=== PATIENT | female | born 1945 | race Caucasian/White ===

== ENCOUNTER 2017-06-08 08:29 | Outpatient (CLI) | payer MEDICARE, OTHER ==
[2017-06-08 08:56] LABS: BASOPHILS # (AUTO) 0.1 10^3/uL (0.0-0.1); BASOPHILS % (AUTO) 1.4 %; EOSINOPHILS # (AUTO) 0.4 10^3/uL (0.0-0.7); EOSINOPHILS % (AUTO) 6.4 %; HCT - HEMATOCRIT 37.1 % (37.0-47.0); HGB - HEMOGLOBIN 12.9 g/dL (12.0-16.0); LYMPHOCYTES # (AUTO) 1.2 10^3/uL (1.5-3.5); LYMPHOCYTES % (AUTO) 20.1 %; MEAN CORPUSCULAR HEMOGLOBIN 32.7 pg (27.0-31.0); MEAN CORPUSCULAR HGB CONC 34.7 g/dL (32.0-36.0); MEAN CORPUSCULAR VOLUME 94.4 fL (81.0-99.0); MEAN PLATELET VOLUME 7.1 fL (7.9-10.8); MONOCYTES # (AUTO) 0.5 10^3/uL (0.0-1.0); MONOCYTES % (AUTO) 8.6 %; NEUTROPHILS # (AUTO) 3.7 10^3/uL (1.5-6.6); NEUTROPHILS % (AUTO) 63.5 %; RED BLOOD COUNT 3.93 10^6/uL (4.20-5.40); RED CELL DISTRIBUTION WIDTH 12.6 % (12.0-15.0); UNCORRECTED WHITE BLOOD COUNT 5.8 x10^3/uL; WHITE BLOOD COUNT 5.8 x10^3/uL (4.8-10.8)
[2017-06-08 09:24] LABS: ALBUMIN/GLOBULIN RATIO 1.8 (1.0-2.2); BILIRUBIN,TOTAL 0.6 mg/dL (0.2-1.0); BUN - BLOOD UREA NITROGEN 16 mg/dL (6-20); CARBON DIOXIDE - CO2 25 mmol/L (21-32); CHLORIDE 103 mmol/L (101-111); CHOL/HDL RATIO 2.2 (<4.4); CHOLESTEROL 207 mg/dL; CREATININE 0.8 mg/dL (0.4-1.0); GFR - MDRD 70 (>89); GLUCOSE 92 mg/dL (70-100); HDL CHOLESTEROL 96 mg/dL; POTASSIUM 3.9 mmol/L (3.5-5.0); SODIUM 139 mmol/L (135-145); TOTAL PROTEIN 6.7 g/dL (6.7-8.2); TRIGLYCERIDES 55 mg/dL; VLDL CHOLESTEROL 11 mg/dL
[2017-06-08 09:29] LABS: BILIRUBIN,URINE NEGATIVE (NEGATIVE); PH,URINE 6.5 PH (5.0-7.5)
[2017-06-08 09:38] LABS: UA w/ MICROSCOPIC CHARGE YES
[2017-06-08 09:49] LABS: UR CULTURE IF IND NOT INDICATED
== END 2017-06-08 08:30 | disposition home or self-care (01) ==
LOC: LAB 08:29
PROVIDERS: ATTEND Internal Medicine
DX: Z79.899 Other long term (current) drug therapy (principal); I10 Essential (primary) hypertension; J45.909 Unspecified asthma, uncomplicated; Z87.19 Personal history of other diseases of the digestive system; K58.9 Irritable bowel syndrome, unspecified; Z86.010 Personal history of colon polyps; R31.29 Other microscopic hematuria; M19.90 Unspecified osteoarthritis, unspecified site; M45.5 Ankylosing spondylitis of thoracolumbar region; M81.0 Age-related osteoporosis without current pathological fracture; E03.9 Hypothyroidism, unspecified; R58 Hemorrhage, not elsewhere classified
CPT/HCPCS: 36415; 80053; 80061; 81001; 81003; 82306; 84443; 85025; 87086

== ENCOUNTER 2018-02-02 10:08 | Outpatient (CLI) | payer MEDICARE, OTHER ==
[2018-02-02 17:28] LABS: BILIRUBIN,URINE NEGATIVE (NEGATIVE); GLUCOSE, URINE (UA) NEGATIVE (NEGATIVE); KETONES,URINE (UA) NEGATIVE (NEGATIVE); LEUKOCYTE ESTERASE, URINE MODERATE (NEGATIVE); NITRITE,URINE NEGATIVE (NEGATIVE); OCCULT BLOOD,URINE SMALL (NEGATIVE); PH,URINE 6.5 PH (5.0-7.5); PROTEIN,URINE NEGATIVE (NEGATIVE); UROBILINOGEN,URINE 0.2 (NORMAL) E.U./dL (NORMAL)
[2018-02-02 17:39] LABS: CLARITY,URINE HAZY (CLEAR)
[2018-02-02 17:50] LABS: ALBUMIN 4.6 g/dL (3.2-5.5); BILIRUBIN,DIRECT 0.1 mg/dL (0.1-0.5); BILIRUBIN,TOTAL 0.8 mg/dL (0.2-1.0); TOTAL PROTEIN 7.2 g/dL (6.7-8.2)
[2018-02-02 18:02] LABS: WBC CLUMPS,URINE PRESENT
[2018-02-02 18:03] LABS: BACTERIA,URINE Many /HPF (None Seen); SQUAMOUS EPITHELIAL CELL,UR RARE Squamous (<= Few)
== END 2018-02-02 10:09 | disposition home or self-care (01) ==
LOC: LAB.F 10:08
PROVIDERS: ATTEND Dermatology
DX: N30.00 Acute cystitis without hematuria (principal); D48.5 Neoplasm of uncertain behavior of skin; B35.1 Tinea unguium
CPT/HCPCS: 36415; 80076; 81001; 81003; 87077; 87086; 87181

== ENCOUNTER 2018-04-30 15:28 | Outpatient (CLI) | payer MEDICARE, OTHER ==
--- NOTE | 2018-05-01 11:25 | Ultrasound Report ---
Reason: MULTIPLE UTIS Procedure Date: 04/30/2018 Accession Number: [id number] / [id number] Procedure: US - Retroperitoneal CPT Code: FULL RESULT: EXAM: RENAL ULTRASOUND EXAM DATE: 04/30/2018 04:32 PM. CLINICAL HISTORY: Multiple UTIs. COMPARISON: None. TECHNIQUE: Real-time scanning was performed with static images obtained. FINDINGS: Right Kidney: 9.5 cm. Normal echotexture with no stones, contour-deforming masses, or hydronephrosis. Left Kidney: 10.1 cm. Normal echotexture with no stones, contour-deforming masses, or hydronephrosis. Bladder: Bilateral jets seen. The prevoid bladder volume was 553 cc. The postvoid bladder volume was 39 cc. Other: None. IMPRESSION: Normal renal ultrasound. RADIA
== END 2018-04-30 15:29 | disposition home or self-care (01) ==
LOC: DI 15:28
PROVIDERS: ATTEND Internal Medicine
DX: N39.0 Urinary tract infection, site not specified (principal)
CPT/HCPCS: 76770

== ENCOUNTER 2018-05-09 13:52 | Outpatient (CLI) | payer MEDICARE, OTHER | END 2018-05-09 13:53 | disposition home or self-care (01) | LOC: LAB.F 13:52 | DX: B35.1 Tinea unguium (principal); Z79.899 Other long term (current) drug therapy ==

== ENCOUNTER 2018-05-14 11:04 | Outpatient (CLI) | payer MEDICARE, OTHER ==
[2018-05-14 17:26] LABS: BILIRUBIN,URINE NEGATIVE (NEGATIVE); GLUCOSE, URINE (UA) NEGATIVE (NEGATIVE); KETONES,URINE (UA) NEGATIVE (NEGATIVE); LEUKOCYTE ESTERASE, URINE SMALL (NEGATIVE); NITRITE,URINE NEGATIVE (NEGATIVE); OCCULT BLOOD,URINE MODERATE (NEGATIVE); PH,URINE 6.5 PH (5.0-7.5); PROTEIN,URINE NEGATIVE (NEGATIVE); UROBILINOGEN,URINE 0.2 (NORMAL) E.U./dL (NORMAL)
[2018-05-14 17:42] LABS: CLARITY,URINE CLOUDY (CLEAR)
[2018-05-14 17:43] LABS: BACTERIA,URINE Moderate /HPF (None Seen); RBC,URINE 0-5 /HPF (0-5); SQUAMOUS EPITHELIAL CELL,UR NONE SEEN (<= Few); WBC CLUMPS,URINE PRESENT
[2018-05-14 17:52] LABS: ALBUMIN 4.3 g/dL (3.2-5.5); BILIRUBIN,DIRECT 0.1 mg/dL (0.1-0.5); BILIRUBIN,TOTAL 0.7 mg/dL (0.2-1.0); TOTAL PROTEIN 7.2 g/dL (6.7-8.2)
== END 2018-05-14 11:05 | disposition home or self-care (01) ==
LOC: LAB.F 11:04
PROVIDERS: ATTEND Dermatology
DX: Z79.899 Other long term (current) drug therapy (principal); R35.0 Frequency of micturition
CPT/HCPCS: 36415; 80076; 81001; 81003; 87086

== ENCOUNTER 2018-05-16 09:59 | Outpatient (CLI) | payer MEDICARE, OTHER ==
[2018-05-16 18:12] LABS: CREATININE 0.9 mg/dL (0.4-1.0)
== END 2018-05-16 10:00 | disposition home or self-care (01) ==
LOC: LAB.F 09:59
PROVIDERS: ATTEND Student in an Organized Health Care Education/Training Program
DX: N39.0 Urinary tract infection, site not specified (principal); R31.0 Gross hematuria
CPT/HCPCS: 36415; 82565

== ENCOUNTER 2018-07-12 15:04 | Outpatient (CLI) | payer MEDICARE, OTHER ==
--- NOTE | 2018-07-13 09:32 | Mammography Report ---
Reason: SCREENING MAMMO Procedure Date: 07/12/2018 Accession Number: [id number] / [id number] Procedure: OPAL - Screening Mammo Impl w/Sergio CPT Code: FULL RESULT: EXAM: Screening Mammo Impl w/Sergio DATE: 07/12/2018 4:40 PM CLINICAL HISTORY: Screening examination. No reported risk factors. TECHNIQUE: Bilateral CC and MLO views were obtained. All views were performed in implant displaced and standard fashion. COMPARISON: 02/14/2012 through 11/27/2008. FINDINGS: The breasts demonstrate extremely dense parenchyma bilaterally, limiting the sensitivity of mammography. Bilateral subglandular implants are redemonstrated. There are bilateral typically benign vascular calcifications. No suspicious masses, clustered microcalcifications, or regions of architectural distortion are identified. IMPRESSION: Benign findings RECOMMENDATION: Routine annual screening unless otherwise clinically indicated. BIRADS CATEGORY 2: Benign findings STANDARD QUALIFYING STATEMENTS: 1. This examination was not reviewed with the aid of Computer-Aided Detection (CAD). 2. A negative or benign imaging report should not preclude biopsy if clinically suspicious findings are present. 3. Dense breasts may obscure an underlying neoplasm. 4. This examination was reviewed with the aid of 3D breast imaging (tomosynthesis).
== END 2018-07-12 15:05 | disposition home or self-care (01) ==
LOC: DI 15:04
PROVIDERS: ATTEND Internal Medicine
DX: Z12.31 Encounter for screening mammogram for malignant neoplasm of breast (principal); Z98.82 Breast implant status
CPT/HCPCS: 77063; 77067

== ENCOUNTER 2019-03-29 12:20 | Outpatient (CLI) | payer MEDICARE, OTHER ==
--- NOTE | 2019-03-29 13:59 | XRAY Report ---
Reason: COUGH Procedure Date: 03/29/2019 Accession Number: [id number] / [id number] Procedure: XR - Chest 2 View X-Ray CPT Code: 13082 FULL RESULT: EXAM: CHEST RADIOGRAPHY EXAM DATE: 03/29/2019 12:48 PM. CLINICAL HISTORY: COUGH. COMPARISON: XR CHEST PA AND LAT 04/05/2007 12:45 PM. TECHNIQUE: 2 views. FINDINGS: Lungs/Pleura: No focal opacities evident. No pleural effusion. No pneumothorax. Normal volumes. Mediastinum: Stable nonenlarged cardiomediastinal silhouette for size with subtle calcifications of the aortic arch. Other: None. IMPRESSION: No acute cardiopulmonary abnormality. RADIA
== END 2019-03-29 12:21 | disposition home or self-care (01) ==
LOC: DI 12:20
PROVIDERS: ATTEND Internal Medicine
DX: R05 Cough (principal)
CPT/HCPCS: 71046

== ENCOUNTER 2019-04-22 16:57 | Outpatient (CLI) | payer MEDICARE, OTHER ==
--- NOTE | 2019-04-23 17:27 | XRAY Report ---
Reason: THORACIC BACK PAIN Procedure Date: 04/22/2019 Accession Number: [id number] / [id number] Procedure: XR - Thoracic Spine 2 View CPT Code: FULL RESULT: EXAM: THORACIC SPINE RADIOGRAPHY EXAM DATE: 04/22/2019 05:15 PM. CLINICAL HISTORY: THORACIC BACK PAIN. COMPARISON: CHEST 2 VIEW 03/29/2019 12:40 PM THORACIC SPINE 2 VIEW 11/18/2014 2:12 PM. TECHNIQUE: 2 views. FINDINGS: Alignment: Unchanged. Slight upper thoracic dextroscoliosis and mid thoracic levoscoliosis. Anterior listhesis C4 with respect to C3 and C5. Bones: No acute fractures or bone lesions. Slight multilevel vertebral body height loss unchanged since prior. Multilevel anterior lower thoracic spur formation also stable Disks: Scattered degenerative disk space narrowing cervical and thoracic spine. Soft Tissues: Unremarkable. IMPRESSION: Multilevel degenerative change thoracic spine similar to 2015. No significant new findings. RADIA
== END 2019-04-22 16:58 | disposition home or self-care (01) ==
LOC: DI 16:57
PROVIDERS: ATTEND Internal Medicine
DX: M47.814 Spondylosis without myelopathy or radiculopathy, thoracic region (principal)
CPT/HCPCS: 72070

== ENCOUNTER 2019-05-27 15:19 | Outpatient (CLI) | payer MEDICARE, OTHER ==
[2019-05-27 17:42] LABS: BILIRUBIN,URINE NEGATIVE (NEGATIVE); GLUCOSE, URINE (UA) NEGATIVE (NEGATIVE); KETONES,URINE (UA) NEGATIVE (NEGATIVE); LEUKOCYTE ESTERASE, URINE TRACE (NEGATIVE); NITRITE,URINE NEGATIVE (NEGATIVE); OCCULT BLOOD,URINE NEGATIVE (NEGATIVE); PROTEIN,URINE NEGATIVE (NEGATIVE); UROBILINOGEN,URINE 0.2 (NORMAL) E.U./dL (NORMAL)
[2019-05-27 17:45] LABS: CLARITY,URINE CLEAR (CLEAR)
[2019-05-27 17:53] LABS: BACTERIA,URINE None Seen /HPF (None Seen); RBC,URINE None Seen /HPF (0-5); SQUAMOUS EPITHELIAL CELL,UR RARE Squamous (<= Few)
== END 2019-05-27 15:20 | disposition home or self-care (01) ==
LOC: LAB.S 15:19
PROVIDERS: ATTEND Internal Medicine
DX: R39.9 Unspecified symptoms and signs involving the genitourinary system (principal)
CPT/HCPCS: 81001; 81003; 87086

== ENCOUNTER 2020-03-18 12:12 | Outpatient (CLI) | payer MEDICARE, OTHER ==
[2020-03-18 15:22] LABS: ALBUMIN 4.5 g/dL (3.2-5.5); BILIRUBIN,DIRECT 0.1 mg/dL (0.1-0.5); TOTAL PROTEIN 7.1 g/dL (6.7-8.2)
== END 2020-03-18 12:13 | disposition home or self-care (01) ==
LOC: LAB.S 12:12
PROVIDERS: ATTEND Physician Assistant
DX: L60.1 Onycholysis (principal)
CPT/HCPCS: 36415; 80076

== ENCOUNTER 2020-11-03 10:50 | Outpatient (CLI) | payer MEDICARE ==
--- NOTE | 2020-11-04 12:16 | Mammography Report ---
BILATERAL DIGITAL SCREENING MAMMOGRAM 3D/2D WITH AUGMENTATION: 11/03/2020 CLINICAL: Routine screening. Comparison is made to exam dated: 07/12/2018 mammogram - [facility]. The tissue of both breasts is extremely dense, which lowers the sensitivity of mammography. Bilateral breast implants are intact. There are benign calcifications in both breasts. There also a re benign vascular calcifications in both breasts. No significant masses, calcifications, or other findings are seen in either breast. There has been no significant interval change. IMPRESSION: BENIGN There is no mammographic evidence of malignancy. A 1 year screening mammogram is recommended. This exam was interpreted at Station ID: [id number]. NOTE: For mammograms, a report in lay terms will be sent to the patient. Approximately 15% of breast malignancies will not be visualized mammographically. In the management of a palpable breast mass, a negative mammogram must not discourage biopsy of a clinically suspicious lesion. Electronically Signed By: Aj Chauhan M.D. ddp/penrad:11/03/2020 11:32:33 ACR BI-RADS Category 2: Benign Finding(s) 3342F PARENCHYMAL PATTERN: (VD) - The breast(s) demonstrate(s) extremely dense parenchyma, limiting the sen sitivity of mammography. BI-RADS CATEGORY: (2) - 2 RECOMMENDATION: (ANNUAL) - Recommend routine annual screening mammography. [id number] 1 year screening LATERALITY: (B)
== END 2020-11-03 10:51 | disposition home or self-care (01) ==
LOC: DI.S 10:50
PROVIDERS: ATTEND Internal Medicine
DX: Z12.31 Encounter for screening mammogram for malignant neoplasm of breast (principal); Z98.82 Breast implant status

== ENCOUNTER 2020-11-03 11:06 | Outpatient (CLI) | payer MEDICARE ==
--- NOTE | 2020-11-03 14:53 | XRAY Report ---
PROCEDURE: Foot 3 View RT INDICATIONS: BRUISED RIGHT 4TH 5TH DIGITS TECHNIQUE: views of the foot were acquired. COMPARISON: None FINDINGS: Bones: There is a mildly displaced mid fifth proximal phalanx fracture. No suspicious bony lesions. Soft tissues: No tibiotalar joint effusion. Achilles tendon appears normal. IMPRESSION: Mildly displaced mid fifth phalanx fracture. Reviewed by: Sofia Vela MD on 11/03/2020 2:52 PM PDT Approved by: Sofia Vela MD on 11/03/2020 2:52 PM PDT Station ID: [id number]
== END 2020-11-03 11:07 | disposition home or self-care (01) ==
LOC: DI.S 11:06
PROVIDERS: ATTEND Internal Medicine
DX: S90.121A Contusion of right lesser toe(s) without damage to nail, initial encounter (principal); S92.511A Displaced fracture of proximal phalanx of right lesser toe(s), initial encounter for closed fracture

== ENCOUNTER 2020-11-12 10:14 | Outpatient (CLI) | payer MEDICARE | END 2020-11-12 10:15 | disposition home or self-care (01) | LOC: DI 10:14 | PROVIDERS: ATTEND Internal Medicine | DX: R00.1 Bradycardia, unspecified (principal); I87.8 Other specified disorders of veins; I51.7 Cardiomegaly | CPT/HCPCS: 93306 ==

== ENCOUNTER 2021-02-01 13:19 | Outpatient (CLI) | payer MEDICARE ==
[2021-02-01 20:27] LABS: ALBUMIN 4.4 g/dL (3.2-5.5); BILIRUBIN,DIRECT 0.1 mg/dL (0.1-0.5); TOTAL PROTEIN 6.7 g/dL (6.7-8.2)
== END 2021-02-01 13:20 | disposition home or self-care (01) ==
LOC: LAB.S 13:19
PROVIDERS: ATTEND Physician Assistant
DX: Z79.899 Other long term (current) drug therapy (principal)
CPT/HCPCS: 36415; 80076

== ENCOUNTER 2021-02-12 08:00 | Outpatient (CLI) | payer MEDICARE | END 2021-02-12 23:59 | disposition home or self-care (01) | LOC: LAB.S 08:00 | PROVIDERS: ATTEND Physician Assistant Medical | DX: R07.0 Pain in throat (principal); Z20.822 Contact with and (suspected) exposure to COVID-19 ==

== ENCOUNTER 2021-03-26 14:05 | Outpatient (CLI) | payer MEDICARE ==
[2021-03-26 20:21] LABS: ALBUMIN 4.2 g/dL (3.2-5.5); BILIRUBIN,DIRECT 0.1 mg/dL (0.1-0.5); TOTAL PROTEIN 6.9 g/dL (6.7-8.2)
== END 2021-03-26 14:06 | disposition home or self-care (01) ==
LOC: LAB.S 14:05
PROVIDERS: ATTEND Physician Assistant
DX: B35.1 Tinea unguium (principal); L71.8 Other rosacea
CPT/HCPCS: 36415; 80076

== ENCOUNTER 2021-06-03 08:00 | Outpatient (CLI) | payer MEDICARE | END 2021-06-03 23:59 | disposition home or self-care (01) | LOC: LAB 08:00 | PROVIDERS: ATTEND Physician Assistant | DX: N39.0 Urinary tract infection, site not specified (principal) | CPT/HCPCS: 87086 ==

== ENCOUNTER 2021-06-10 09:37 | Outpatient (CLI) | payer MEDICARE ==
[2021-06-10 15:37] LABS: ALBUMIN 4.4 g/dL (3.2-5.5); BILIRUBIN,DIRECT 0.1 mg/dL (0.1-0.5); BILIRUBIN,TOTAL 0.6 mg/dL (0.2-1.0)
== END 2021-06-10 09:38 | disposition home or self-care (01) ==
LOC: LAB.S 09:37
PROVIDERS: ATTEND Physician Assistant
DX: B35.1 Tinea unguium (principal)
CPT/HCPCS: 36415; 80076

== ENCOUNTER 2021-06-24 16:14 | Outpatient (CLI) | payer MEDICARE ==
[2021-06-24 20:32] LABS: BILIRUBIN,URINE NEGATIVE (NEGATIVE); GLUCOSE, URINE (UA) NEGATIVE (NEGATIVE); KETONES,URINE (UA) NEGATIVE (NEGATIVE); LEUKOCYTE ESTERASE, URINE NEGATIVE (NEGATIVE); NITRITE,URINE NEGATIVE (NEGATIVE); OCCULT BLOOD,URINE TRACE-INTA (NEGATIVE); PH,URINE 6.5 PH (5.0-7.5); PROTEIN,URINE NEGATIVE (NEGATIVE); UROBILINOGEN,URINE 0.2 (NORMAL) E.U./dL (NORMAL)
[2021-06-24 20:33] LABS: CLARITY,URINE CLEAR (CLEAR)
== END 2021-06-24 16:15 | disposition home or self-care (01) ==
LOC: LAB.S 16:14
PROVIDERS: ATTEND Internal Medicine
DX: N39.0 Urinary tract infection, site not specified (principal)
CPT/HCPCS: 81001; 81003; 87086

== ENCOUNTER 2021-06-29 10:28 | Outpatient (CLI) | payer MEDICARE ==
--- NOTE | 2021-06-29 12:23 | XRAY Report ---
PROCEDURE: Thoracic Spine 2 View INDICATIONS: BACK PAIN TECHNIQUE: 3 views of the thoracic spine were acquired. COMPARISON: None. FINDINGS: Bones: No fractures or dislocations. No suspicious bony lesions. 12 pairs of ribs are noted, and a ppear intact where visualized. Severe degenerative disc changes noted throughout the mid and lower th oracic spine. Moderate degenerative changes noted throughout the upper thoracic spine. Soft tissues: No paravertebral stripe thickening. IMPRESSION: 1. Multilevel degenerative disc disease. 2. No fracture. No acute osseous lesion. If there is continued clinical concern for pathology, then M RI should be considered for further evaluation. Reviewed by: Candelaria Villafuerte MD, PhD on 06/29/2021 12:22 PM PST Approved by: Candelaria Villafuerte MD, PhD on 06/29/2021 12:22 PM PST Station ID: [id number]
== END 2021-06-29 10:29 | disposition home or self-care (01) ==
LOC: DI.S 10:28
PROVIDERS: ATTEND Internal Medicine
DX: M51.34 Other intervertebral disc degeneration, thoracic region (principal)

== ENCOUNTER 2021-07-13 14:00 | Outpatient (CLI) | payer MEDICARE ==
[2021-07-13 19:59] LABS: BILIRUBIN,URINE NEGATIVE (NEGATIVE); GLUCOSE, URINE (UA) NEGATIVE (NEGATIVE); KETONES,URINE (UA) NEGATIVE (NEGATIVE); LEUKOCYTE ESTERASE, URINE MODERATE (NEGATIVE); NITRITE,URINE NEGATIVE (NEGATIVE); OCCULT BLOOD,URINE MODERATE (NEGATIVE); PROTEIN,URINE TRACE mg/dL (NEGATIVE); UROBILINOGEN,URINE 0.2 (NORMAL) E.U./dL (NORMAL)
[2021-07-13 20:14] LABS: BACTERIA,URINE Moderate /HPF (None Seen); CLARITY,URINE CLOUDY (CLEAR); SQUAMOUS EPITHELIAL CELL,UR MOD Squamous (<= Few)
== END 2021-07-13 14:01 | disposition home or self-care (01) ==
LOC: LAB.S 14:00
PROVIDERS: ATTEND Internal Medicine
DX: R39.0 Extravasation of urine (principal)
CPT/HCPCS: 81001; 87077; 87086

== ENCOUNTER 2021-08-02 11:21 | Outpatient (CLI) | payer MEDICARE ==
--- NOTE | 2021-08-04 18:32 | CARDIAC PROCEDURE NOTE ---
Stress Test Report Service Date: 08/02/21 Indication for Test: Exercise ECHO Morgan protocol. 5 minutes. mets=7.05 Reason for stopping: exceeded target heart rate HR response: 63 to 138 BP resonse: 150/79 to 182/84 symptoms. No CP some dyspnea. ST segment response: no signifcant ST elevation or depression Arrhythmias: occasional PVC's and PAC's Impression: no symptoms or significant EKG changes Conclusion: likely low-risk stress eCHO, but await ECHO results
== END 2021-08-02 11:22 | disposition home or self-care (01) ==
LOC: DI 11:21
PROVIDERS: ATTEND Internal Medicine
DX: R07.9 Chest pain, unspecified (principal)
CPT/HCPCS: 93350

== ENCOUNTER 2021-08-31 09:48 | Outpatient (CLI) | payer MEDICARE ==
[2021-08-31] MEDS ORDERED: IOVERSOL 320 100 ML VIAL IVP ONE ×2 (10:10→10:51)
[2021-08-31 10:24] LABS: CREATININE 0.7 mg/dL (0.4-1.0)
--- NOTE | 2021-08-31 14:22 | CT Report ---
PROCEDURE: ANGIO CHEST W/WO INDICATIONS: INTERMITTENT SEVER CP CONTRAST: IV CONTRAST: Optiray 320 ml: 80 PO CONTRAST: *NO PO CONTRAST TECHNIQUE: After the administration of intravenous contrast, 2 mm axial images were acquired from the pulmonary apices to the posterior costophrenic angles during the arterial phase. In addition, 1 mm lung kernel and 5 mm soft tissue kernel reconstructions were performed. 3-dimensional coronal oblique maximum int ensity projection (MIP) reformats, 8 mm axial MIP, and 5 mm coronal and sagittal MPR reformats were t hen performed through the thorax. For radiation dose reduction, the following was used: automated exp osure control, adjustment of mA and/or kV according to patient size. COMPARISON: None FINDINGS: Image quality: Excellent. Pulmonary arteries: Pulmonary arteries are normal in size, and demonstrate no intraluminal filling d efects to suggest central pulmonary embolism. Lungs and pleura: Lungs are clear. No pleural effusions or pneumothorax. Central and peripheral ai rways are patent. Mediastinum: Heart size is normal, without pericardial effusion. No mediastinal or hilar adenopathy . Thoracic aorta is normal in caliber and enhancement. Esophagus is normal in caliber, without hiat al hernia. Bones and chest wall: No suspicious bony lesions. Ribs and thoracic spine appear intact throughout. No axillary or supraclavicular adenopathy. The thyroid is normal in size and there are no incident al findings. Bilateral mammoplasties. Abdomen: Visualized upper abdominal solid organs appear normal in the early arterial phase of enhanc ement. IMPRESSION: 1. No evidence acute pulmonary emboli. 2. No evidence of acute pulmonary process. 3. Mild coronary artery calcifications. CLINICAL RECOMMENDATION STATEMENTS: In patients <35 years with an ITN detected on CT, MRI, or extrathyroidal ultrasound, the Committee re commends further evaluation with dedicated thyroid ultrasound if the nodule is "e1 cm and has no susp icious imaging features, and if the patient has normal life expectancy. In patients "e35 years with an ITN detected on CT, MRI, or extrathyroidal ultrasound, the Committee r ecommends further evaluation with dedicated thyroid ultrasound if the nodule is "e1.5 cm and has no s uspicious imaging features, and if the patient has normal life expectancy. (ACR, 2014) Reviewed by: Mumtaz Sosa MD on 08/31/2021 2:20 PM PST Approved by: Mumtaz Sosa MD on 08/31/2021 2:20 PM [facility] [place] Station ID: [id number]
== END 2021-08-31 09:49 | disposition home or self-care (01) ==
LOC: LAB 09:48
PROVIDERS: ATTEND Internal Medicine
DX: Z79.899 Other long term (current) drug therapy (principal); R07.9 Chest pain, unspecified; I25.10 Atherosclerotic heart disease of native coronary artery without angina pectoris
CPT/HCPCS: 36415; 71275; 82565; Q9967

== ENCOUNTER 2021-09-01 08:00 | Outpatient (CLI) | payer MEDICARE ==
[2021-09-01 16:14] LABS: BILIRUBIN,URINE NEGATIVE (NEGATIVE); GLUCOSE, URINE (UA) NEGATIVE (NEGATIVE); KETONES,URINE (UA) NEGATIVE (NEGATIVE); LEUKOCYTE ESTERASE, URINE SMALL (NEGATIVE); NITRITE,URINE NEGATIVE (NEGATIVE); OCCULT BLOOD,URINE LARGE (NEGATIVE); PROTEIN,URINE 100 mg/dL (NEGATIVE); UROBILINOGEN,URINE 0.2 (NORMAL) E.U./dL (NORMAL)
[2021-09-01 16:17] LABS: CLARITY,URINE HAZY (CLEAR)
[2021-09-01 16:27] LABS: BACTERIA,URINE Few /HPF (None Seen); RBC,URINE TNTC /HPF (0-5); SQUAMOUS EPITHELIAL CELL,UR RARE Squamous (<= Few); WBC,URINE >25 /HPF (0-5)
== END 2021-09-01 23:59 | disposition home or self-care (01) ==
LOC: LAB.R 08:00
PROVIDERS: ATTEND Emergency Medicine
DX: N30.01 Acute cystitis with hematuria (principal)
CPT/HCPCS: 81001; 87077; 87086

== ENCOUNTER 2021-09-17 08:00 | Outpatient (CLI) | payer MEDICARE | END 2021-09-17 23:59 | disposition home or self-care (01) | LOC: LAB 08:00 | PROVIDERS: ATTEND Physician Assistant | DX: N30.01 Acute cystitis with hematuria (principal) | CPT/HCPCS: 87086 ==

== ENCOUNTER 2021-09-28 08:00 | Outpatient (CLI) | payer MEDICARE ==
[2021-09-28 16:04] LABS: BILIRUBIN,URINE NEGATIVE (NEGATIVE); GLUCOSE, URINE (UA) NEGATIVE (NEGATIVE); KETONES,URINE (UA) NEGATIVE (NEGATIVE); LEUKOCYTE ESTERASE, URINE NEGATIVE (NEGATIVE); NITRITE,URINE NEGATIVE (NEGATIVE); OCCULT BLOOD,URINE NEGATIVE (NEGATIVE); PROTEIN,URINE NEGATIVE (NEGATIVE); UROBILINOGEN,URINE 0.2 (NORMAL) E.U./dL (NORMAL)
[2021-09-28 16:12] LABS: CLARITY,URINE CLEAR (CLEAR)
[2021-09-28 16:18] LABS: RBC,URINE 0-5 /HPF (0-5); WBC,URINE 0-3 /HPF (0-5)
[2021-09-28 16:19] LABS: BACTERIA,URINE None Seen /HPF (None Seen); SQUAMOUS EPITHELIAL CELL,UR RARE Squamous (<= Few)
== END 2021-09-28 23:59 ==
LOC: LAB.R 08:00
PROVIDERS: ATTEND Internal Medicine
DX: R35.1 Nocturia (principal); N39.0 Urinary tract infection, site not specified; R35.0 Frequency of micturition
CPT/HCPCS: 81001; 87086

== ENCOUNTER 2021-09-30 13:00 | Outpatient (CLI) | payer MEDICARE ==
[2021-09-30 15:33] LABS: ALBUMIN 4.4 g/dL (3.2-5.5); BILIRUBIN,DIRECT 0.1 mg/dL (0.1-0.5); BILIRUBIN,TOTAL 0.8 mg/dL (0.2-1.0); TOTAL PROTEIN 7.2 g/dL (6.7-8.2)
== END 2021-09-30 13:01 | disposition home or self-care (01) ==
LOC: LAB.S 13:00
PROVIDERS: ATTEND Physician Assistant
DX: B35.1 Tinea unguium (principal)
CPT/HCPCS: 36415; 80076

== ENCOUNTER 2021-10-02 08:00 | Outpatient (CLI) | payer MEDICARE | END 2021-10-02 08:01 | disposition home or self-care (01) | LOC: LAB.S 08:00 | PROVIDERS: ATTEND Physician Assistant Medical | DX: N30.01 Acute cystitis with hematuria (principal) | CPT/HCPCS: 87086 ==

== ENCOUNTER 2021-10-19 11:04 | Outpatient (CLI) | payer MEDICARE ==
[2021-10-19 14:42] LABS: BASOPHILS % (AUTO) 0.8 %; EOSINOPHILS # (AUTO) 0.1 10^3/uL (0.0-0.7); EOSINOPHILS % (AUTO) 1.1 %; HCT - HEMATOCRIT 37.5 % (37.0-47.0); HGB - HEMOGLOBIN 12.8 g/dL (12.0-16.0); LYMPHOCYTES # (AUTO) 0.9 10^3/uL (1.5-3.5); LYMPHOCYTES % (AUTO) 16.8 %; MEAN CORPUSCULAR HEMOGLOBIN 32.7 pg (27.0-31.0); MEAN CORPUSCULAR HGB CONC 34.1 g/dL (32.0-36.0); MEAN CORPUSCULAR VOLUME 95.7 fL (81.0-99.0); MEAN PLATELET VOLUME 9.6 fL (7.9-10.8); MONOCYTES # (AUTO) 0.6 10^3/uL (0.0-1.0); MONOCYTES % (AUTO) 11.7 %; NEUTROPHILS # (AUTO) 3.6 10^3/uL (1.5-6.6); NEUTROPHILS % (AUTO) 69.4 %; PLT - PLATELET COUNT 243 10^3/uL (130-450); RED BLOOD COUNT 3.92 10^6/uL (4.20-5.40); RED CELL DISTRIBUTION WIDTH 12.1 % (12.0-15.0); WHITE BLOOD COUNT 5.2 x10^3/uL (4.8-10.8)
[2021-10-19 20:33] LABS: ALBUMIN 4.4 g/dL (3.2-5.5); ALBUMIN/GLOBULIN RATIO 1.7 (1.0-2.2); ALKALINE PHOSPHATASE 61 IU/L (42-121); ALT ALANINE AMINOTRANSFERASE 16 IU/L (10-60); AST ASPARTATE AMINOTRANSFERASE 27 IU/L (10-42); BILIRUBIN,TOTAL 0.9 mg/dL (0.2-1.0); BUN - BLOOD UREA NITROGEN 10 mg/dL (6-20); CALCIUM 8.9 mg/dL (8.5-10.3); CARBON DIOXIDE - CO2 27 mmol/L (21-32); CHLORIDE 96 mmol/L (101-111); CHOL/HDL RATIO 2.1 (<4.4); CHOLESTEROL 233 mg/dL; CREATININE 0.7 mg/dL (0.4-1.0); GFR - MDRD 81 (>89); GLUCOSE 92 mg/dL (70-100); HDL CHOLESTEROL 111 mg/dL; LDL CHOLESTEROL,CALCULATED 111 mg/dL; POTASSIUM 4.1 mmol/L (3.5-5.0); SODIUM 132 mmol/L (135-145); TRIGLYCERIDES 56 mg/dL; VLDL CHOLESTEROL 11 mg/dL
== END 2021-10-19 11:05 | disposition home or self-care (01) ==
LOC: LAB.S 11:04
PROVIDERS: ATTEND Internal Medicine
DX: I10 Essential (primary) hypertension (principal); Z13.6 Encounter for screening for cardiovascular disorders; Z79.899 Other long term (current) drug therapy; J45.909 Unspecified asthma, uncomplicated; Z86.010 Personal history of colon polyps; M81.0 Age-related osteoporosis without current pathological fracture; R60.9 Edema, unspecified
CPT/HCPCS: 36415; 80053; 80061; 82306; 83721; 84443; 85025

== ENCOUNTER 2021-10-26 08:00 | Outpatient (CLI) | payer MEDICARE ==
[2021-10-26 20:31] LABS: BILIRUBIN,URINE NEGATIVE (NEGATIVE); GLUCOSE, URINE (UA) NEGATIVE (NEGATIVE); KETONES,URINE (UA) NEGATIVE (NEGATIVE); LEUKOCYTE ESTERASE, URINE SMALL (NEGATIVE); NITRITE,URINE NEGATIVE (NEGATIVE); OCCULT BLOOD,URINE TRACE-LYSE (NEGATIVE); PH,URINE 6.5 PH (5.0-7.5); PROTEIN,URINE NEGATIVE (NEGATIVE); UROBILINOGEN,URINE 0.2 (NORMAL) E.U./dL (NORMAL)
[2021-10-26 20:35] LABS: CLARITY,URINE HAZY (CLEAR)
[2021-10-26 20:48] LABS: WBC,URINE >25 /HPF (0-5)
[2021-10-26 20:49] LABS: BACTERIA,URINE Few /HPF (None Seen); RBC,URINE 0-5 /HPF (0-5); SQUAMOUS EPITHELIAL CELL,UR FEW Squamous (<= Few)
== END 2021-10-26 08:01 | disposition home or self-care (01) ==
LOC: LAB 08:00
PROVIDERS: ATTEND Physician Assistant Medical
DX: R30.0 Dysuria (principal)
CPT/HCPCS: 81001; 87086

== ENCOUNTER 2022-03-20 15:25 | Outpatient (CLI) | payer MEDICARE | END 2022-03-20 15:26 | disposition EMS.NT | LOC: EMS 15:25 | DX: U07.1 COVID-19 (principal) ==

== ENCOUNTER 2022-03-22 10:57 | Outpatient (CLI) | payer MEDICARE | END 2022-03-22 10:58 | disposition critical access hospital (66) | LOC: EMS 10:57 | DX: U07.1 COVID-19 (principal) | CPT/HCPCS: A0425; A0429 ==

== ENCOUNTER 2022-03-22 11:35 | Inpatient (IN) | payer MEDICARE ==
--- OUTSIDE RECORDS SUMMARY | 2022-03-22 11:49 | EXTERNAL MEDICAL SUMMARY RPT | Continuity of Care Document ---
:1945 Author Organization [facility] Address [address] [place] [address] Phone Allergies No information. Encounters No information. Functional Status No information. Immunizations No information. Medications No information. Problems No information. Procedures No information. Results/Labs test date author facility value unit interpret ation Result panel 1 (unknown) (no date) (unknown) (unknown) (no value) (units (un known) unknown) (unknown) (no date) (unknown) (unknown) [address] unknown) (unknown) (no date) (unknown) (unknown) [place] (units (unknown) [address] unknown) (unknown) (no date) (unknown) (unknown) [facility] (unknown) (no date) (unknown) (unknown) Signed (units (unkn own) unknown) (unknown) (no date) (unknown) (unknown) XRay Report (units (u nknown) unknown) (unknown) (no date) (unknown) (unknown) (no value) (units (un known) unknown) (unknown) (no date) (unknown) (unknown) 02/21/22 (units (unkn own) unknown) (unknown) (no date) (unknown) (unknown) Approved by: (units ( unknown) pat Jalloh) Luis Felipe on 02/21/2022 at 20:54 (unknown) (no date) (unknown) (unknown) Bones: No (units (unk nown) fractures or unknown) dislocations. No suspicious bony lesions. Prior left (unknown) (no date) (unknown) (unknown) COMPARISON: (units (u nknown) None. unknown) (unknown) (no date) (unknown) (unknown) Dictated by: (units ( unknown) bella Jalloh M.D. on 02/21/2022 at 20:50 (unknown) (no date) (unknown) (unknown) FINDINGS: (units (unk nown) unknown) (unknown) (no date) (unknown) (unknown) IMPRESSION: (units (u nknown) unknown) (unknown) (no date) (unknown) (unknown) INDICATIONS: (units ( unknown) LEFT KNEE PAIN unknown) (unknown) (no date) (unknown) (unknown) No acute (units (unkn own) osseous unknown) abnormality. If symptoms persist, follow-up radiographs (unknown) (no date) (unknown) (unknown) Soft tissues: (units (unknown) No joint unknown) effusion. No suspicious soft tissue calcifications. (unknown) (no date) (unknown) (unknown) TECHNIQUE: 3 (units ( unknown) views of the unknown) knee were acquired. (unknown) (no date) (unknown) (unknown) arthroplasty. (units (unknown) Hardware unknown) appears intact. No definite suspicious lucency (unknown) (no date) (unknown) (unknown) be helpful for (units (unknown) further unknown) evaluation. (unknown) (no date) (unknown) (unknown) hardware (units (unkn own) components. unknown) (unknown) (no date) (unknown) (unknown) [id number] (units (unkn own) unknown) (unknown) (no date) (unknown) (unknown) Accession (units (unk nown) Number: unknown) [id number] (unknown) (no date) (unknown) (unknown) Age/Sex: 76 / (units (unknown) F Date of unknown) Service: (unknown) (no date) (unknown) (unknown) : (units (unkn own) 1945 unknown) Acct:[id number] (unknown) (no date) (unknown) (unknown) Loc: RAD (units (unkn own) unknown) (unknown) (no date) (unknown) (unknown) Ordering (units (unkn own) Provider: unknown) Renetta Montano D.O. (unknown) (no date) (unknown) (unknown) PROCEDURE: XR (units (unknown) KNEE LT 3V unknown) (unknown) (no date) (unknown) (unknown) Patient: (units (unkn own) Rosalie Pearl unknown) MR#: [id number] (unknown) (no date) (unknown) (unknown) Procedure: XR (units (unknown) knee LT 3V unknown) (unknown) (no date) (unknown) (unknown) adjacent to (units (u nknown) the unknown) (unknown) (no date) (unknown) (unknown) and/or CT may (units (unknown) unknown) (unknown) (no date) (unknown) (unknown) knee (units (unkn own) unknown) Result panel 2 (unknown) (no (unknown) (unknown) (no value) (units (unk nown) date) unknown) (unknown) (no (unknown) (unknown) 11/05/19 [History (units (unknown) date) Confirmed 02/28/22] unknown) (unknown) (no (unknown) (unknown) 12/12/18 [History (units (unknown) date) Confirmed 02/28/22] unknown) (unknown) (no (unknown) (unknown) 02/28/22 (units (unkno wn) date) unknown) (unknown) (no (unknown) (unknown) 02/28/22] (units (unkn own) date) unknown) (unknown) (no (unknown) (unknown) 05/14/10 [History (units (unknown) date) Confirmed 02/28/22] unknown) (unknown) (no (unknown) (unknown) 06/06/19 [Rx (units (u nknown) date) Confirmed 02/28/22] unknown) (unknown) (no (unknown) (unknown) [id number] (units (unkno wn) date) unknown) (unknown) (no (unknown) (unknown) ALBUTEROL SULFATE (units (unknown) date) (Ventolin / unknown) Proventil) 0 puff INH * DOSE/FREQUENCY ##0 (unknown) (no (unknown) (unknown) Accompanied by: Self (uni ts (unknown) date) / Same As Patient unknown) (unknown) (no (unknown) (unknown) Age/Sex: 76 / F Date (uni ts (unknown) date) of Service: unknown) (unknown) (no (unknown) (unknown) Allergies (units (unkn own) date) unknown) (unknown) (no (unknown) (unknown) [place] [id number] (unit s (unknown) date) unknown) (unknown) (no (unknown) (unknown) Attending Dr: Renetta (uni ts (unknown) date) Efrain Morrison unknown) (unknown) (no (unknown) (unknown) BEDTIME 02/28/22 (units (unknown) date) [History Confirmed unknown) 02/28/22] (unknown) (no (unknown) (unknown) Confirmed 02/28/22] (unit s (unknown) date) unknown) (unknown) (no (unknown) (unknown) : 1945 (units (unknown) date) Acct:[id number] unknown) (unknown) (no (unknown) (unknown) Dept at (units (unkno wn) date) . unknown) (unknown) (no (unknown) (unknown) Documented By: (units (unknown) date) Renetta Montano D.O. 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), unknown) thoracic (unknown) (no (unknown) (unknown) Herniated nucleus (units (unknown) date) pulposus, 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 unknown) (unknown) (no (unknown) (unknown) History of left knee (uni ts (unknown) date) surgery unknown) (unknown) (no (unknown) (unknown) History of (units (unk nown) date) tonsillectomy unknown) (unknown) (no (unknown) (unknown) Hives (units (unkno wn) date) unknown) (unknown) (no (unknown) (unknown) Hx of tubal ligation (uni ts (unknown) date) unknown) (unknown) (no (unknown) (unknown) Intake Clinical (units (unknown) date) Staff unknown) (unknown) (no (unknown) (unknown) Intake performed by: (uni ts (unknown) date) [place] unknown) (unknown) (no (unknown) (unknown) Intake (units (unkno wn) date) unknown) (unknown) (no (unknown) (unknown) Loc: PAIN (units (unkn own) date) unknown) (unknown) (no (unknown) (unknown) Medical History (units (unknown) date) (Reviewed 11/01/21 @ unknown) 13:47 by Renetta Montano DO) (unknown) (no (unknown) (unknown) Medications (units (un known) date) unknown) (unknown) (no (unknown) (unknown) PFSH (units (unkno wn) date) unknown) (unknown) (no (unknown) (unknown) Pain Visit (units (unk nown) date) unknown) (unknown) (no (unknown) (unknown) Patient: Rosalie Pearl (uni ts (unknown) date) [place] MR#: [id number] unknown) (unknown) (no (unknown) (unknown) Radiculopathy, (units (unknown) date) thoracic region unknown) (unknown) (no (unknown) (unknown) Reason For Visit (units (unknown) date) unknown) (unknown) (no (unknown) (unknown) Scoliosis of (units (u nknown) date) cervical region 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 (unknown) (no (unknown) (unknown) Signed By: (units (unk nown) date) unknown) (unknown) (no (unknown) (unknown) Smoking Status: (units (unknown) date) Never smoker unknown) (unknown) (no (unknown) (unknown) Sulfa (Sulfonamide (units (unknown) date) Antibiotics) Allergy unknown) (Verified 02/28/22 13:36) (unknown) (no (unknown) (unknown) Surgical History (units (unknown) date) (Reviewed 11/01/21 @ unknown) 13:47 by Renetta Montano DO) (unknown) (no (unknown) (unknown) [facility] (unit s (unknown) date) Management unknown) (unknown) (no (unknown) (unknown) This note may have (units (unknown) date) been all or partially unknown) generated using voice recognition (unknown) (no (unknown) (unknown) Thoracic (units (unkno wn) date) 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 (unknown) (no (unknown) (unknown) Thoracic spine pain (unit s (unknown) date) unknown) (unknown) (no (unknown) (unknown) Thoracic spondylosis (uni ts (unknown) date) unknown) (unknown) (no (unknown) (unknown) Tobacco + Substance (unit s (unknown) date) Use unknown) (unknown) (no (unknown) (unknown) Tobacco Status (units (unknown) date) unknown) (unknown) (no (unknown) (unknown) Visit Reasons: FU L (unit s (unknown) date) Knee, LEFT KNEE unknown) INJECTION (unknown) (no (unknown) (unknown) [Rx Confirmed (units ( unknown) date) 02/28/22] unknown) (unknown) (no (unknown) (unknown) alvegco 160 mcg (units (unknown) date) inhalation BID unknown) 12/12/18 [History Confirmed 02/28/22] (unknown) (no (unknown) (unknown) amlodipine 2.5 mg (units (unknown) date) tablet 2.5 mg PO unknown) DAILY 07/12/21 [History Confirmed 02/28/22] (unknown) (no (unknown) (unknown) amoxicillin Allergy (unit s (unknown) date) (Verified 02/28/22 unknown) 13:36) (unknown) (no (unknown) (unknown) cephalexin [From (units (unknown) date) Keflex] Allergy unknown) (Verified 02/28/22 13:36) (unknown) (no (unknown) (unknown) ciclesonide 160 (units (unknown) date) mcg/actuation aerosol unknown) inhaler (Alvesco) 1 puff inhalation (unknown) (no (unknown) (unknown) diclofenac sodium 1 (unit s (unknown) date) % topical gel 2 g unknown) topical QID arthritis pain #100 grams (unknown) (no (unknown) (unknown) estradiol 0.01% (0.1 (uni ts (unknown) date) mg/gram) vaginal unknown) cream vaginal 11/05/19 [History Confirmed (unknown) (no (unknown) (unknown) fluticasone (units (un known) date) propionate 50 unknown) mcg/actuation nasal spray,suspension intranasal (unknown) (no (unknown) (unknown) gabapentin 300 mg (units (unknown) date) capsule See Rx unknown) Instructions .Route .COMPLEX #90 caps 01/12/22 (unknown) (no (unknown) (unknown) have occurred. If (units (unknown) date) there are any unknown) questions, please contact the Medical Records (unknown) (no (unknown) (unknown) hydrochlorothiazide (unit s (unknown) date) 25 mg tablet 12.5 mg unknown) PO DAILY 12/12/18 [History Confirmed (unknown) (no (unknown) (unknown) ipratropium bromide (unit s (unknown) date) 42 mcg (0.06 %) nasal unknown) spray 2 spray intranasal DAILY PRN (unknown) (no (unknown) (unknown) levothyroxine 125 (units (unknown) date) mcg tablet mcg PO unknown) DAILY 11/05/19 [History Confirmed 02/28/22] (unknown) (no (unknown) (unknown) loratadine 10 mg (units (unknown) date) tablet (Allerclear) unknown) 10 mg PO DAILY 12/12/18 [History Confirmed (unknown) (no (unknown) (unknown) may occur. (units (unk nown) date) Occasional wrong-word unknown) or 'sound-alike' substitutions may have (unknown) (no (unknown) (unknown) naphron a 1 drop (units (unknown) date) ophthalmic (eye) QID unknown) 12/12/18 [History Confirmed 02/28/22] (unknown) (no (unknown) (unknown) nitrofurantoin (units (unknown) date) macrocrystal 100 mg unknown) capsule 100 mg PO BEDTIME 02/28/22 [History (unknown) (no (unknown) (unknown) occurred due to the (unit s (unknown) date) inherent limitations unknown) of voice recognition software. Please (unknown) (no (unknown) (unknown) read the note (units ( unknown) date) carefully and unknown) recognize, using context, where these substitutions (unknown) (no (unknown) (unknown) software. Although (units (unknown) date) every effort is made unknown) to edit content, screen tacker errors Result panel 3 (unknown) (no (unknown) (unknown) (no value) (units (unk nown) date) unknown) (unknown) (no (unknown) (unknown) 11/05/19 [History (units (unknown) date) Confirmed 02/28/22] unknown) (unknown) (no (unknown) (unknown) 12/12/18 [History (units (unknown) date) Confirmed 02/28/22] unknown) (unknown) (no (unknown) (unknown) 02/28/22 (units (unkno wn) date) unknown) (unknown) (no (unknown) (unknown) 02/28/22] (units (unkn own) date) unknown) (unknown) (no (unknown) (unknown) 05/14/10 [History (units (unknown) date) Confirmed 02/28/22] unknown) (unknown) (no (unknown) (unknown) 06/06/19 [Rx (units (u nknown) date) Confirmed 02/28/22] unknown) (unknown) (no (unknown) (unknown) 13:45 (units (unkno wn) date) unknown) (unknown) (no (unknown) (unknown) [id number] (units (unkno wn) date) unknown) (unknown) (no (unknown) (unknown) ALBUTEROL SULFATE (units (unknown) date) (Ventolin / unknown) Proventil) 0 puff INH * [place] DOSE/FREQUENCY ##0 (unknown) (no (unknown) (unknown) Accompanied by: Self (uni ts (unknown) date) / Same As Patient unknown) (unknown) (no (unknown) (unknown) Age/Sex: 76 / F Date (uni ts (unknown) date) of Service: unknown) (unknown) (no (unknown) (unknown) Allergies (units (unkn own) date) unknown) (unknown) (no (unknown) (unknown) [place] [address] (unit s (unknown) date) unknown) (unknown) (no (unknown) (unknown) Attending Dr: Renetta (uni ts (unknown) date) Efrain Morrison unknown) (unknown) (no (unknown) (unknown) BEDTIME 02/28/22 (units (unknown) date) [History Confirmed unknown) 02/28/22] (unknown) (no (unknown) (unknown) BMI 24.3 (units (unkno wn) date) unknown) (unknown) (no (unknown) (unknown) BP 128/80 (units (unkn own) date) unknown) (unknown) (no (unknown) (unknown) Blood Pressure (units (unknown) date) Location Lt brachial unknown) (unknown) (no (unknown) (unknown) Confirmed 02/28/22] (unit s (unknown) date) unknown) (unknown) (no (unknown) (unknown) : 1945 (units (unknown) date) Acct:[id number] unknown) (unknown) (no (unknown) (unknown) Dept at (units (unkno wn) date) . unknown) (unknown) (no (unknown) (unknown) Documented By: (units (unknown) date) Renetta Montano D.O. unknown) 02/28/22 1335 (unknown) (no (unknown) (unknown) Draft (units (unkno wn) date) unknown) (unknown) (no (unknown) (unknown) Facet arthropathy, (units (unknown) date) cervical unknown) (unknown) (no (unknown) (unknown) Fusion of sacral (units (unknown) date) region of spine unknown) (unknown) (no (unknown) (unknown) H/O bursectomy (units (unknown) date) unknown) (unknown) (no (unknown) (unknown) H/O: hysterectomy (units (unknown) date) unknown) (unknown) (no (unknown) (unknown) HERE FOR LEFT KNEE (units (unknown) date) unknown) (unknown) (no (unknown) (unknown) HNP (herniated (units (unknown) date) nucleus pulposus), unknown) thoracic (unknown) (no (unknown) (unknown) Height 5 ft 7 in (units (unknown) date) unknown) (unknown) (no (unknown) (unknown) Herniated nucleus (units (unknown) date) pulposus, 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 unknown) (unknown) (no (unknown) (unknown) History of left knee (uni ts (unknown) date) surgery unknown) (unknown) (no (unknown) (unknown) History of (units (unk nown) date) tonsillectomy unknown) (unknown) (no (unknown) (unknown) Hives (units (unkno wn) date) unknown) (unknown) (no (unknown) (unknown) Hx of tubal ligation (uni ts (unknown) date) unknown) (unknown) (no (unknown) (unknown) Intake Clinical (units (unknown) date) Staff unknown) (unknown) (no (unknown) (unknown) Intake Note: (units (u nknown) date) unknown) (unknown) (no (unknown) (unknown) Intake performed by: (uni ts (unknown) date) Virginia Davis unknown) (unknown) (no (unknown) (unknown) Intake (units (unkno wn) date) unknown) (unknown) (no (unknown) (unknown) Is patient in pain?: (uni ts (unknown) date) Yes (HERE FOR LEFT unknown) KNEE) Pain scale (1-10): 3 (unknown) (no (unknown) (unknown) Loc: PAIN (units (unkn own) date) unknown) (unknown) (no (unknown) (unknown) Medical History (units (unknown) date) (Reviewed 11/01/21 @ unknown) 13:47 by Renetta Montano DO) (unknown) (no (unknown) (unknown) Medications (units (un known) date) unknown) (unknown) (no (unknown) (unknown) Oxygen Delivery (units (unknown) date) Method room air unknown) (unknown) (no (unknown) (unknown) PFSH (units (unkno wn) date) unknown) (unknown) (no (unknown) (unknown) Pain Scale (units (unk nown) date) unknown) (unknown) (no (unknown) (unknown) Pain Visit (units (unk nown) date) unknown) (unknown) (no (unknown) (unknown) Patient: Rosalie Pearl (uni ts (unknown) date) [place] MR#: [id number] unknown) (unknown) (no (unknown) (unknown) Position Sitting (units (unknown) date) unknown) (unknown) (no (unknown) (unknown) Pulse 66 (units (unkno wn) date) unknown) (unknown) (no (unknown) (unknown) Pulse Oximetry (%) (units (unknown) date) 99 unknown) (unknown) (no (unknown) (unknown) Pulse Source Monitor (uni ts (unknown) date) unknown) (unknown) (no (unknown) (unknown) Radiculopathy, (units (unknown) date) thoracic region unknown) (unknown) (no (unknown) (unknown) Reason For Visit (units (unknown) date) unknown) (unknown) (no (unknown) (unknown) Scoliosis of (units (u nknown) date) cervical region 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 (unknown) (no (unknown) (unknown) Signed By: (units (unk nown) date) unknown) (unknown) (no (unknown) (unknown) Smoking Status: (units (unknown) date) Never smoker unknown) (unknown) (no (unknown) (unknown) Sulfa (Sulfonamide (units (unknown) date) Antibiotics) Allergy unknown) (Verified 02/28/22 13:36) (unknown) (no (unknown) (unknown) Surgical History (units (unknown) date) (Reviewed 11/01/21 @ unknown) 13:47 by Renetta Montano DO) (unknown) (no (unknown) (unknown) Temp 98.3 F (units (un known) date) unknown) (unknown) (no (unknown) (unknown) Temp Source Temporal (uni ts (unknown) date) Artery Scan unknown) (unknown) (no (unknown) (unknown) [facility] (unit s (unknown) date) Management unknown) (unknown) (no (unknown) (unknown) This note may have (units (unknown) date) been all or partially unknown) generated using voice recognition (unknown) (no (unknown) (unknown) Thoracic (units (unkno wn) date) 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 (unknown) (no (unknown) (unknown) Thoracic spine pain (unit s (unknown) date) unknown) (unknown) (no (unknown) (unknown) Thoracic spondylosis (uni ts (unknown) date) unknown) (unknown) (no (unknown) (unknown) Tobacco + Substance (unit s (unknown) date) Use unknown) (unknown) (no (unknown) (unknown) Tobacco Status (units (unknown) date) unknown) (unknown) (no (unknown) (unknown) Visit Reasons: FU L (unit s (unknown) date) Knee, LEFT KNEE unknown) INJECTION (unknown) (no (unknown) (unknown) Vitals (units (unkno wn) date) unknown) (unknown) (no (unknown) (unknown) Weight 155 lb (units ( unknown) date) unknown) (unknown) (no (unknown) (unknown) [Rx Confirmed (units ( unknown) date) 02/28/22] unknown) (unknown) (no (unknown) (unknown) alvegco 160 mcg (units (unknown) date) inhalation BID unknown) 12/12/18 [History Confirmed 02/28/22] (unknown) (no (unknown) (unknown) amlodipine 2.5 mg (units (unknown) date) tablet 2.5 mg PO unknown) DAILY 07/12/21 [History Confirmed 02/28/22] (unknown) (no (unknown) (unknown) amoxicillin Allergy (unit s (unknown) date) (Verified 02/28/22 unknown) 13:36) (unknown) (no (unknown) (unknown) cephalexin [From (units (unknown) date) Keflex] Allergy unknown) (Verified 02/28/22 13:36) (unknown) (no (unknown) (unknown) ciclesonide 160 (units (unknown) date) mcg/actuation aerosol unknown) inhaler (Alvesco) 1 puff inhalation (unknown) (no (unknown) (unknown) diclofenac sodium 1 (unit s (unknown) date) % topical gel 2 g unknown) topical QID arthritis pain #100 grams (unknown) (no (unknown) (unknown) estradiol 0.01% (0.1 (uni ts (unknown) date) mg/gram) vaginal unknown) cream vaginal 11/05/19 [History Confirmed (unknown) (no (unknown) (unknown) fluticasone (units (un known) date) propionate 50 unknown) mcg/actuation nasal spray,suspension intranasal (unknown) (no (unknown) (unknown) gabapentin 300 mg (units (unknown) date) capsule See Rx unknown) Instructions .Route .COMPLEX #90 caps 01/12/22 (unknown) (no (unknown) (unknown) have occurred. If (units (unknown) date) there are any unknown) questions, please contact the Medical Records (unknown) (no (unknown) (unknown) hydrochlorothiazide (unit s (unknown) date) 25 mg tablet 12.5 mg unknown) PO DAILY 12/12/18 [History Confirmed (unknown) (no (unknown) (unknown) ipratropium bromide (unit s (unknown) date) 42 mcg (0.06 %) nasal unknown) spray 2 spray intranasal DAILY PRN (unknown) (no (unknown) (unknown) levothyroxine 125 (units (unknown) date) mcg tablet mcg PO unknown) DAILY 11/05/19 [History Confirmed 02/28/22] (unknown) (no (unknown) (unknown) loratadine 10 mg (units (unknown) date) tablet (Allerclear) unknown) 10 mg PO DAILY 12/12/18 [History Confirmed (unknown) (no (unknown) (unknown) may occur. (units (unk nown) date) Occasional wrong-word unknown) or 'sound-alike' substitutions may have (unknown) (no (unknown) (unknown) naphron a 1 drop (units (unknown) date) ophthalmic (eye) QID unknown) 12/12/18 [History Confirmed 02/28/22] (unknown) (no (unknown) (unknown) nitrofurantoin (units (unknown) date) macrocrystal 100 mg unknown) capsule 100 mg PO BEDTIME 02/28/22 [History (unknown) (no (unknown) (unknown) occurred due to the (unit s (unknown) date) inherent limitations unknown) of voice recognition software. Please (unknown) (no (unknown) (unknown) read the note (units ( unknown) date) carefully and unknown) recognize, using context, where these substitutions (unknown) (no (unknown) (unknown) software. Although (units (unknown) date) every effort is made unknown) to edit content, screen tacker errors Result panel 4 (unknown) (no (unknown) (unknown) (no value) (units (unk nown) date) unknown) (unknown) (no (unknown) (unknown) 11/05/19 [History (units (unknown) date) Confirmed 02/28/22] unknown) (unknown) (no (unknown) (unknown) 12/12/18 [History (units (unknown) date) Confirmed 02/28/22] unknown) (unknown) (no (unknown) (unknown) 12/12/2018 cervical (unit s (unknown) date) spine x-ray results: unknown) (unknown) (no (unknown) (unknown) 12/12/2018 lumbar (units (unknown) date) spine x-ray results: unknown) (unknown) (no (unknown) (unknown) 02/28/22 (units (unkno wn) date) unknown) (unknown) (no (unknown) (unknown) 02/28/22] (units (unkn own) date) unknown) (unknown) (no (unknown) (unknown) 1. Degenerative disc (uni ts (unknown) date) and facet disease in unknown) lumbar spine as described. (unknown) (no (unknown) (unknown) 05/14/10 [History (units (unknown) date) Confirmed 02/28/22] unknown) (unknown) (no (unknown) (unknown) 06/06/19 [Rx (units (u nknown) date) Confirmed 02/28/22] unknown) (unknown) (no (unknown) (unknown) 13:45 (units (unkno wn) date) unknown) (unknown) (no (unknown) (unknown) 2. Fusion of SI (units (unknown) date) joints bilaterally. unknown) (unknown) (no (unknown) (unknown) [id number] (units (unkno wn) date) unknown) (unknown) (no (unknown) (unknown) ACCESSION#: (units (un known) date) [id number] EXAM unknown) DATE: 01/22/2020 15:19 (unknown) (no (unknown) (unknown) ALBUTEROL SULFATE (units (unknown) date) (Ventolin / unknown) Proventil) 0 puff INH * DOSE/FREQUENCY ##0 (unknown) (no (unknown) (unknown) Accompanied by: Self (uni ts (unknown) date) / Same As Patient unknown) (unknown) (no (unknown) (unknown) Age/Sex: 76 / F Date (uni ts (unknown) date) of Service: unknown) (unknown) (no (unknown) (unknown) All other systems (units (unknown) date) reviewed and are unknown) negative except as noted in HPI. (unknown) (no (unknown) (unknown) Allergies (units (unkn own) date) unknown) (unknown) (no (unknown) (unknown) [place]ary [id number] (unit s (unknown) date) unknown) (unknown) (no (unknown) (unknown) Approved by: Wolfgang (unit s (unknown) date) Luis Felipe Alexander on unknown) 02/21/2022 at 20:54 (unknown) (no (unknown) (unknown) Approved by: Seamus (units (unknown) date) Luis Felipe Kelsey on unknown) 01/22/2020 at 17:05 (unknown) (no (unknown) (unknown) Assessment + Plan (units (unknown) date) unknown) (unknown) (no (unknown) (unknown) Attending Dr: Renetta (uni ts (unknown) date) Efrain Morrison unknown) (unknown) (no (unknown) (unknown) BEDTIME 02/28/22 (units (unknown) date) [History Confirmed unknown) 02/28/22] (unknown) (no (unknown) (unknown) BMI 24.3 (units (unkno wn) date)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 including (units (unknown) date) not limited to unknown) bleeding, infection, allergic reaction, nerve (unknown) (no (unknown) (unknown) read the note (units ( unknown) date) carefully and unknown) recognize, using context, where these substitutions (unknown) (no (unknown) (unknown) relief applied. (units (unknown) date) Please see the unknown) procedure note for full details. (unknown) (no (unknown) (unknown) sheet as well as a (units (unknown) date) pain like to monitor unknown) her relief. I would like to follow up (unknown) (no (unknown) (unknown) software. Although (units (unknown) date) every effort is made unknown) to edit content, screen tacker errors m (unknown) (no (unknown) (unknown) the anterior (units (u nknown) date) articular space. A 25 unknown) gauge needle with 1% lidocaine solution was (unknown) (no (unknown) (unknown) the injection (units ( unknown) date) procedure for unknown) complete details. (unknown) (no (unknown) (unknown) the right. On (units ( unknown) date) oblique views, there unknown) is no definitive bony foraminal stenosis. (unknown) (no (unknown) (unknown) thoracic radicular (units (unknown) date) features.? She is unknown) status post MARK on 09/02/2021.? She reports (unknown) (no (unknown) (unknown) throughout mid to (units (unknown) date) lower thoracic spine unknown) is seen. 12 pairs of ribs are noted, and (unknown) (no (unknown) (unknown) time.? She does (units (unknown) date) report left knee pain unknown) and she has undergone bilateral total knee (unknown) (no (unknown) (unknown) to proceed with a (units (unknown) date) left unknown) ultrasound-guided knee injection today. (unknown) (no (unknown) (unknown) today without (units ( unknown) date) guarantees or unknown) assurances of complete relief applied. Please see (unknown) (no (unknown) (unknown) unspecified (units (un known) date) artificial knee joint unknown) (unknown) (no (unknown) (unknown) used for anesthetic. (uni ts (unknown) date) Subsequently then a unknown) 25 gauge needle was atraumatically (unknown) (no (unknown) (unknown) where visualized. (units (unknown) date) unknown) (unknown) (no (unknown) (unknown) with her in (units (un known) date) approximately 6-8 unknown) weeks she is in agreement with the above-stated (unknown) (no (unknown) (unknown) with the right knee (unit s (unknown) date) that was performed in unknown) [address] Gunter at [facility] (unknown) (no (unknown) (unknown) without cough fever (unit s (unknown) date) fatigue at this time. unknown) Social History No information. Vital Signs No information.
--- NOTE | 2022-03-22 12:08 | ED Physician Documentation ---
History of Present Illness - Stated complaint Stated Complaint: C+ - Chief complaint Chief Complaint: Resp - History obtained from History obtained from: Patient - History of Present Illness Pain level max: 0 Pain level now: 0 - Additonal information Additional information: Patient is a 76-year-old female with a history of asthma who was diagnosed with COVID on Monday. She has had her COVID vaccinations. She started Paxlovid yesterday. She states increasing difficulty breathing today and feeling generally worse. She is having fevers, body aches, cough. Patient also has a history of hypothyroidism and hypertension. She does not use home oxygen. She was 88% upon arrival here. Some nausea but no vomiting. Patient reports some diarrhea. No blood in the stool. Review of Systems Ten Systems: 10 systems reviewed and negative Constitutional: denies: Fever, Chills Nose: denies: Rhinorrhea / runny nose, Congestion Throat: denies: Sore throat Cardiac: denies: Chest pain / pressure Respiratory: reports: Cough, Wheezing GI: denies: Vomiting, Diarrhea Skin: denies: Rash Musculoskeletal: denies: Neck pain, Back pain Neurologic: denies: Headache PD PAST MEDICAL HISTORY - Past Medical History Past Medical History: Yes Cardiovascular: Hypertension Respiratory: Asthma, Pneumonia Endocrine/Autoimmune: HyPOthyroidism - Past Surgical History Past Surgical History: Yes Ortho: Knee replacement - Present Medications Home Medications: Ambulatory Orders Medication Instructions Recorded Confirmed Albuterol Sulf [Ventolin Hfa 1 - 2 puffs IH Q4HR PRN 07/20/15 03/22/22 Inhaler] Amlodipine Besylate 2.5 mg ORAL DAILY 07/20/15 03/22/22 Beclomethasone 40 Mcg [Qvar 40] 1 puffs DAILY 07/20/15 07/20/15 Fluticasone [Flonase] 1 spray IN BID 07/20/15 03/22/22 Levothyroxine [Synthroid] 125 mcg ORAL DAILY 07/20/15 03/22/22 Wheelchair [Transport Chair] 1 each MC DAILY #1 each 07/20/15 hydroCHLOROthiazide [Hydrodiuril] 25 mg PO DAILY 03/22/22 03/22/22 - Allergies Allergies/Adverse Reactions: Allergies Allergy/AdvReac Type Severity Reaction Status Date / Time amoxicillin Allergy Hives Verified 03/22/22 11:48 cephalexin monohydrate * Allergy Hives Verified 03/22/22 11:48 [From Keflex] sulfamethoxazole Allergy Hives Verified 03/22/22 11:48 [From Bactrim] trimethoprim [From Bactrim] Allergy Hives Verified 03/22/22 11:48 - Social History Does the pt smoke?: No Smoking Status: Never smoker Does the pt drink ETOH?: Yes Does the pt have substance abuse?: No PD ED PE NORMAL - Vitals Vital signs reviewed: Yes - General General: Alert and oriented X 3, No acute distress - HEENT HEENT: PERRL, Moist mucous membranes - Neck Neck: Supple, no meningeal sign - Cardiac Cardiac: RRR, Strong equal pulses - Respiratory Respiratory: No respiratory distress, Other (Wheezing and rhonchi bilaterally) - Abdomen Abdomen: Soft, Non tender, Non distended - Derm Derm: Warm and dry, No rash - Extremities Extremities: No edema - Neuro Neuro: Alert and oriented X 3 - Psych Psych: Normal mood, Normal affect Results - Vitals Vitals: Vital Signs - 24 hr 03/22/22 03/22/22 11:44 11:57 Temperature 36.6 C Heart Rate 65 94 Respiratory 18 20 Rate Blood Pressure 114/64 114/64 O2 Saturation 88 L 94 If not protocol 4 : Oxygen Flow, liters/minute Oxygen O2 Source Nasal cannula Oxygen Flow Rate 2 - Labs Labs: Laboratory Tests 03/22/22 03/22/22 03/22/22 12:10 12:10 12:10 WBC 7.1 RBC 3.99 L Hgb 13.4 Hct 36.0 L MCV 90.2 MCH 33.6 H MCHC 37.2 H RDW 11.6 L Plt Count 146 MPV 9.7 Neut # (Auto) Not Reportable Lymph # (Auto) Not Reportable [place] # (Auto) Not Reportable Eos # (Auto) Not Reportable Baso # (Auto) Not Reportable Absolute Nucleated RBC Not Reportable Total Counted 100 Band Neuts % (Manual) 8 Abnorm Lymph % (Manual) 0 Metamyelocytes % 1 H Nucleated RBC % Not Reportable Neutrophils # (Manual) 6.9 H Lymphocytes # (Manual) 0.1 L Monocytes # (Manual) 0.0 Eosinophils # (Manual) 0.0 Basophils # (Manual) 0.0 Differential Comment MANUAL DIFFERENTIAL Manual Slide Review Indicated WBC Morphology NORMAL APPEARANCE Platelet Estimate NORMAL (130-450,000) Platelet Morphology NORMAL APPEARANCE RBC Morph Micro Appear NORMAL APPEARANCE PT 12.2 INR 1.1 APTT 30.9 Sodium 121 L Potassium 3.5 Chloride 84 L Carbon Dioxide 26 Anion Gap 11.0 BUN 32 H Creatinine 1.3 H Estimated GFR (MDRD) 40 L Glucose 99 Lactic Acid Calcium 7.8 L Total Bilirubin 2.0 H AST 42 ALT 18 Alkaline Phosphatase 60 Total Protein 6.4 L Albumin 3.3 Globulin 3.1 Albumin/Globulin Ratio 1.1 Lipase 27 Nasal Adenovirus (PCR) Nasal B. parapertussis DNA (PCR) Nasal Coronavir 229E PCR Nasal Coronavir HKU1 PCR Nasal Coronavir NL63 PCR Nasal Coronavir OC43 PCR Nasal Enterovir/Rhinovir PCR Nasal Influenza B PCR Nasal Influenza A PCR Nasal Parainfluen 1 PCR Nasal Parainfluen 2 PCR Nasal Parainfluen 3 PCR Nasal Parainfluen 4 PCR Nasal RSV (PCR) Nasal B.pertussis DNA PCR Nasal C.pneumoniae (PCR) Pa Human Metapneumo PCR Nasal M.pneumoniae (PCR) Nasal SARS-CoV-2 (PCR) 03/22/22 03/22/22 12:10 12:15 WBC RBC Hgb Hct MCV MCH MCHC RDW Plt Count MPV Neut # (Auto) Lymph # (Auto) [place] # (Auto) Eos # (Auto) Baso # (Auto) Absolute Nucleated RBC Total Counted Band Neuts % (Manual) Abnorm Lymph % (Manual) Metamyelocytes % Nucleated RBC % Neutrophils # (Manual) Lymphocytes # (Manual) Monocytes # (Manual) Eosinophils # (Manual) Basophils # (Manual) Differential Comment Manual Slide Review WBC Morphology Platelet Estimate Platelet Morphology RBC Morph Micro Appear PT INR APTT Sodium Potassium Chloride Carbon Dioxide Anion Gap BUN Creatinine Estimated GFR (MDRD) Glucose Lactic Acid 1.9 Calcium Total Bilirubin AST ALT Alkaline Phosphatase Total Protein Albumin Globulin Albumin/Globulin Ratio Lipase Nasal Adenovirus (PCR) NOT DETECTED Nasal B. parapertussis DNA (PCR) NOT DETECTED Nasal Coronavir 229E PCR NOT DETECTED Nasal Coronavir HKU1 PCR NOT DETECTED Nasal Coronavir NL63 PCR NOT DETECTED Nasal Coronavir OC43 PCR NOT DETECTED Nasal Enterovir/Rhinovir PCR NOT DETECTED Nasal Influenza B PCR NOT DETECTED Nasal Influenza A PCR NOT DETECTED Nasal Parainfluen 1 PCR NOT DETECTED Nasal Parainfluen 2 PCR NOT DETECTED Nasal Parainfluen 3 PCR NOT DETECTED Nasal Parainfluen 4 PCR NOT DETECTED Nasal RSV (PCR) NOT DETECTED Nasal B.pertussis DNA PCR NOT DETECTED Nasal C.pneumoniae (PCR) NOT DETECTED Pa Human Metapneumo PCR NOT DETECTED Nasal M.pneumoniae (PCR) NOT DETECTED Nasal SARS-CoV-2 (PCR) DETECTED A - Rads (name of study) cxr Radiology: Final report received, EMP read contemporaneously, See rad report PD MEDICAL DECISION MAKING - ED course Complexity details: reviewed results, re-evaluated patient, considered differential, d/w patient ED course: Patient is a 76-year-old female who presents after testing positive for COVID several days ago. She has now developed a left lower lobe pneumonia as well. She has hypoxic. She has hyponatremic. Given IV fluids, placed on supplemental oxygen and IV antibiotics started. We will admit the patient for further care. Discussed the case with Dr. Omalley, hospitalist who accepts This document was made in part using voice recognition software. While efforts are made to proofread this document, sound alike and grammatical errors may occur. Departure - Departure Disposition: 66 [facility] DC/Xfer Clinical Impression: COVID, Hypoxia, Hyponatremia Pneumonia Qualifiers: Pneumonia type: due to unspecified organism Laterality: left Lung location: unspecified part of lung Qualified Code(s): J18.9 - Pneumonia, unspecified organism Asthma Qualifiers: Asthma severity: unspecified severity Asthma persistence: unspecified Asthma complication type: unspecified Qualified Code(s): J45.909 - Unspecified asthma, uncomplicated Condition: Stable
--- NOTE | 2022-03-22 12:21 | XRAY Report ---
PROCEDURE: Chest 1 View X-Ray INDICATIONS: +covid, cough TECHNIQUE: One view of the chest was acquired. COMPARISON: CTA chest 08/31/2021 FINDINGS: New consolidation and groundglass opacity in the left midlung and left lung base. There is a somewhat masslike dense area of consolidation measuring approximately 4 cm, with suggestion of a few subtle a ir bronchograms. IMPRESSION: Left lung consolidation groundglass opacity consistent with an infectious process, although there is a somewhat masslike opacity in the left lung base. Findings are strongly favored to represent infecti ous process, especially given the lack of any lung mass on the 08/31/2021 CT. Follow-up to resolution is recommended to help exclude an underlying mass, however. Reviewed by: Aaron Quinn MD on 03/22/2022 12:19 PM PDT Approved by: Aaron Quinn MD on 03/22/2022 12:19 PM PDT Station ID: [id number]
[2022-03-22 12:22] LABS: BASOPHILS % (AUTO) 0.6 %; HGB - HEMOGLOBIN 13.4 g/dL (12.0-16.0); LYMPHOCYTES % (AUTO) 1.8 %; MEAN CORPUSCULAR HEMOGLOBIN 33.6 pg (27.0-31.0); MEAN CORPUSCULAR HGB CONC 37.2 g/dL (32.0-36.0); MEAN CORPUSCULAR VOLUME 90.2 fL (81.0-99.0); MEAN PLATELET VOLUME 9.7 fL (7.9-10.8); MONOCYTES % (AUTO) 1.1 %; NEUTROPHILS % (AUTO) 96.4 %; PLT - PLATELET COUNT 146 10^3/uL (130-450); RED BLOOD COUNT 3.99 10^6/uL (4.20-5.40); RED CELL DISTRIBUTION WIDTH 11.6 % (12.0-15.0); WHITE BLOOD COUNT 7.1 x10^3/uL (4.8-10.8)
[2022-03-22 12:23] LABS: SLIDE REVIEW? Indicated
[2022-03-22 12:24] LABS: ABNORMAL LYMPHS % (MANUAL) 0 %
[2022-03-22 12:30] LABS: INR 1.1 (0.8-1.2); PT - PROTHROMBIN TIME 12.2 secs (9.9-12.6)
[2022-03-22] MEDS ORDERED: cefTRIAXone 1 GM VIAL IVP STA (12:31)
[2022-03-22] MEDS ORDERED: AZITHROMYCIN INJ 500 MG in SODIUM CHLORIDE 0.9% 250 ML IV STA (12:32)
[2022-03-22 12:33] LABS: ALBUMIN 3.3 g/dL (3.2-5.5); ALBUMIN/GLOBULIN RATIO 1.1 (1.0-2.2); CALCIUM 7.8 mg/dL (8.5-10.3); CREATININE 1.3 mg/dL (0.4-1.0); POTASSIUM 3.5 mmol/L (3.5-5.0); TOTAL PROTEIN 6.4 g/dL (6.7-8.2)
[2022-03-22 12:37] LABS: PARTIAL THROMBOPLASTIN TIME 30.9 secs (24.9-33.3)
[2022-03-22] MEDS ORDERED: SODIUM CHLORIDE 0.9% 1,000 ML IV STA (12:44)
[2022-03-22 12:52] LABS: BAND NEUTROPHILS % (MANUAL) 8 %; LYMPHOCYTES # (MANUAL) 0.1 10^3/uL (1.5-3.5); LYMPHOCYTES % (MANUAL) 2 %; METAMYELOCYTES % (MANUAL) 1 %; NEUTROPHILS # (MANUAL) 6.9 10^3/uL (1.5-6.6)
[2022-03-22 12:53] LABS: DIFFERENTIAL COMMENT MANUAL DIFFERENTIAL; PLATELET ESTIMATE, MANUAL NORMAL (130-450,000) (NORMAL); PLATELET MORPHOLOGY NORMAL APPEARANCE (NORMAL); RBC MORPHOLOGY (MULTIPLE) NORMAL APPEARANCE (NORMAL); WBC MORPHOLOGY (MULTIPLE) NORMAL APPEARANCE (NORMAL)
[2022-03-22] MEDS ORDERED: SODIUM CHLORIDE FLUSH 0.9% 10 ML SYRINGE IVP PRN (13:02)
[2022-03-22] MEDS ORDERED: ONDANSETRON 4 MG/2 ML VIAL IVP PRN (13:02)
--- NOTE | 2022-03-22 13:09 | HISTORY & PHYSICAL EXAMINATION ---
Chief Complaint - Chief Complaint Chief Complaint: Malaise, chills, cough, diarrhea, SOB History of Present Illness - Admitted From Admitted From:: ED - History Obtained From History obtained from: ED provider and the patient - History of Present Illness HPI Comment/Other: This is a 76-year-old white female with history of mild, exercise-induced asthma on prn inhalers, hypertension on amlodipine and HCTZ and history of hypothyroidism on Synthroid. She and her were on a trip to [place] and returned 5 days ago. The patient developed cough, fever to 103.8, malaise, no appetite, fatigue, diarrhea and shortness of breath 4 days ago, after returning by fight from [place] the previous day. She was tested and diagnosed COVID-positive 4 days ago. She started taking Paxlovid yesterday. Today she presented to the ED complaining of worsening shortness of breath, and stated that her oxygen at home was in the mid 80's%. In the ED, her room air O2 saturation was 88% and she was started on supplemental oxygen. Her chest x-ray shows a left lower lobe infiltrate and groundglass appearance changes of the lungs. Her Lactic Acid level was normal. Blood cx were obtained. She was given Azithromycin and ordered to get Ceftriaxone also, but this was discontinued b ecause of a Keflex allergy that had caused hives. The patient is being admitted for community-acquired pneumonia and COVID-pneumonia with acute hypoxia. Her CODE status is Full Code. History - Past Medical History Cardiovascular: reports: Hypertension Respiratory: reports: Asthma (exercise-induced), Pneumonia Neuro: reports: None Endocrine/Autoimmune: reports: HyPOthyroidism GI: reports: None TELEPHONER: reports: None : reports: Chronic bladder infection HEENT: reports: None Psych: reports: None Musculoskeletal: reports: Other Derm: reports: None MRSA Hx?: No - Past Surgical History Ortho: reports: Knee replacement - Family & Social History Family History: Mother: (both of lung cancer), Father: , Brother: Alive and Well (2 brothers ) Family History Comment/Other: No diseases run in the family. She had 2 natural children, one of an accident. Living Situation: With spouse/s.o. 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 She does not smoke and drinks occaisionally. - Substance History Use: Uses substance without health or social issues: NONE Meds/Allgy - Home Medications Home Medications: Ambulatory Orders Medication Instructions Recorded Confirmed Albuterol Sulf [Ventolin Hfa 1 - 2 puffs IH Q4HR PRN 07/20/15 03/22/22 Inhaler] Amlodipine Besylate 2.5 mg ORAL DAILY 07/20/15 03/22/22 Fluticasone [Flonase] 1 spray ROD BID 07/20/15 03/22/22 Levothyroxine [Synthroid] 125 mcg ORAL DAILY 07/20/15 03/22/22 Ciclesonide [Alvesco] 1 puffs INH BID 03/22/22 03/22/22 Gabapentin [Neurontin] 300 - 600 mg PO TID 03/22/22 03/22/22 Nitrofurantoin Macrocrystal 100 mg PO DAILY 03/22/22 03/22/22 [Macrodantin] estradioL vaginal [Estrace vaginal] 1 applic VG UD PRN 03/22/22 03/22/22 hydroCHLOROthiazide [Hydrodiuril] 25 mg PO DAILY 03/22/22 03/22/22 - Allergies Allergies/Adverse Reactions: Allergies Allergy/AdvReac Type Severity Reaction Status Date / Time amoxicillin Allergy Hives Verified 03/22/22 11:48 cephalexin monohydrate * Allergy Hives Verified 03/22/22 11:48 [From Keflex] sulfamethoxazole Allergy Hives Verified 03/22/22 11:48 [From Bactrim] trimethoprim [From Bactrim] Allergy Hives Verified 03/22/22 11:48 Review of Systems - Constitutional Constitutional: reports: Fatigue, Fever (to 103.8 at home) - Respiratory Respiratory: reports: Cough, Sputum production - Gastrointestinal Gastrointestinal: reports: Diarrhea (incontinent of stool several days), Poor appetite (Almost no oral intake for 3 days) - All Other Systems All Other Systems: reports: Reviewed and negative Exam - Vital Signs Vital Signs: Vital Signs x48h Temp Pulse Resp BP Pulse Ox O2 Flow Rate 03/22/22 11:57 94 20 114/64 94 4 03/22/22 11:44 36.6 C 65 18 114/64 88 L - Physical Exam General Appearance: positive: No acute distress (when wearing O2 per n.c.) Eyes Bilateral: positive: Normal inspection, EOMI ENT: positive: ENT inspection nml, No signs of dehydration Neck: positive: Nml inspection, Thyroid nml, No JVD Respiratory: positive: Rales, Rhonchi Cardiovascular: positive: Regular rate & rhythm, No murmur Abdomen: positive: Non-tender, Nml bowel sounds, No distention Skin: positive: No rash, Warm, Dry Extremities: positive: Non-tender, No pedal edema Neurologic/Psychiatric: positive: Oriented x3 (Non-focal) Conclusion/Plan - Problem List (1) Acute respiratory failure with hypoxia Conclusion/Plan: She has evidence of COVID-pneumonia with a groundglass changes on chest x-ray, possibly a community-acquired lobar pneumonia and also has a history of asthma all of which could be adding to her hypoxia. Will treat with IV antibiotics, IV steroids, remdesivir and inhalers. Give supplemental oxygen to keep O2 sats greater than 90% and wean down to room air as tolerated (2) CAP (community acquired pneumonia) Conclusion/Plan: Will order sputum for cx. Await blood cx results Will continue with empitric antibx for her CAP, but will use Levaquin, given the cephalosporin allergy. Will order Mucinex and Robitussin for pulmonary toilet. (3) COVID Conclusion/Plan: She has pulmonary and GI symptoms consistent with COVID. Decadron and Remdesivir will be ordered. Diet will be pured and advance as tolerated, given the diarrhea. IV fluids will be ordered. Isolation will be ordered. (4) Hyponatremia Conclusion/Plan: This may be from poor intake given the GI symptoms of COVID versus from sodium losses with her HCTZ. Will start IV fluids using NS. Will recheck serum Na in several hours to avoid excessively rapid correction. Will not give her home med of HCTZ Follow BMP daily (5) SHAGGY (acute kidney injury) Conclusion/Plan: Her creatinine is 1.3, her usual baseline creatinine is 0.8. This is likely from volume depletion. Fluids by IV are being started (6) Asthma Conclusion/Plan: Will order her own handheld inhalers to be used, not nebulizers while she is COVID-positive and needs respiratory isolation. Decadron daily will be started Will also give supplemental oxygen, keeping sats greater than 90%. Qualifiers: Asthma severity: unspecified severity Asthma persistence: unspecified Asthma complication type: unspecified Qualified Code(s): J45.909 - Unspecified asthma, uncomplicated (7) HTN (hypertension) Conclusion/Plan: We will continue with her usual amlodipine dose but hold the HCTZ because of the Hyponatremia abd while she needs IV hydration (8) Hypothyroidism Conclusion/Plan: TSH level will be checked to assess if adequate treatment and her usual Synthroid dose will be ordered - Lab Results Fish Bones: 03/22/22 12:10 03/22/22 17:00 - Diagnostic Imaging Results Diagnostic Imaging Results: positive: Final report reviewed - Other Other Results/Comments: Attestation: The patient is expected to be discharged or transferred to another facility within 96 hours: Yes.
[2022-03-22 13:26] LABS: B. PARAPERTUSSIS- RESP PCR PAN NOT DETECTED; B. PERTUSSIS- RESP PCR PANEL NOT DETECTED; C. PNEUMONIAE- RESP PCR PANEL NOT DETECTED; CORONAVIRUS 229E-RESP PCR NOT DETECTED; CORONAVIRUS HKU1-RESP PCR NOT DETECTED; CORONAVIRUS NL63-RESP PCR NOT DETECTED; CORONAVIRUS OC43-RESP PCR NOT DETECTED; HUMAN METAPNEUMOVIRUS NOT DETECTED; INFLUENZA A- RESP PCR PANEL NOT DETECTED; INFLUENZA B - RESP PCR PANEL NOT DETECTED; M. PNEUMONIAE- RESP PCR PANEL NOT DETECTED; PARAINFLUENZA VIRUS 1 NOT DETECTED; PARAINFLUENZA VIRUS 2 NOT DETECTED; PARAINFLUENZA VIRUS 3 NOT DETECTED; PARAINFLUENZA VIRUS 4 NOT DETECTED; RHINOVIRUS/ENTEROVIRUS NOT DETECTED; RSV- RESP PCR PANEL NOT DETECTED
[2022-03-22 13:28] LABS: SARS-CoV-2 -RESP PCR PANEL DETECTED
[2022-03-22] MEDS ORDERED: DEXAMETHASONE 10 MG/ML VIAL IVP ONE (14:00)
[2022-03-22] MEDS ORDERED: SODIUM CHLORIDE 0.9% 1,000 ML IV SCH (14:00)
--- NOTE | 2022-03-22 15:16 | PHARMACY PROGRESS NOTE ---
- Best Possible Medication History Admit Date and Time: 03/22/22 1302 Processed by: Nursing Medication History completed: Yes Secondary Source(s): Physician records, Insurance records Nursing confirmed medication list. Pharmacy updated a couple medications based on insurance records and [employer] data. As the person ultimately responsible for medication therapy, providers are able to order a medication from an existing home medication list in [facility] via the "Reconcile Routine" prior to Confirmation of that medication by computer support technician. Such practice is discouraged except when the physician, in their clinical judgment, deems that a medical need exists for a medication without regard to previous use.
[2022-03-22] MEDS: SODIUM CHLORIDE FLUSH 0.9% 10 ML SYRINGE IVP SCH (16:40)
[2022-03-22 17:21] LABS: CALCIUM 7.5 mg/dL (8.5-10.3); CREATININE 1.1 mg/dL (0.4-1.0); POTASSIUM 3.6 mmol/L (3.5-5.0)
[2022-03-22] MEDS ORDERED: guaiFENesin/DEXTROMETHORPHAN 10 ML UDC PO PRN (17:56)
[2022-03-22] MEDS ORDERED: REMDESIVIR 100MG VIAL 200 MG in SODIUM CHLORIDE 0.9% 250 ML IV ONE (18:00)
[2022-03-22] MEDS: SODIUM CHLORIDE 0.9% 1,000 ML IV SCH (19:10)
[2022-03-22] MEDS: levoFLOXacin 750 MG/150 ML 750 MG/150 ML BAG IV SCH (19:11)
[2022-03-22 19:30] LABS: BILIRUBIN,URINE NEGATIVE (NEGATIVE); GLUCOSE, URINE (UA) NEGATIVE (NEGATIVE); KETONES,URINE (UA) NEGATIVE (NEGATIVE); LEUKOCYTE ESTERASE, URINE MODERATE (NEGATIVE); NITRITE,URINE NEGATIVE (NEGATIVE); OCCULT BLOOD,URINE MODERATE (NEGATIVE); PROTEIN,URINE 30 mg/dL (NEGATIVE); UROBILINOGEN,URINE 0.2 (NORMAL) E.U./dL (NORMAL)
[2022-03-22 19:31] LABS: CLARITY,URINE CLOUDY (CLEAR)
[2022-03-22 19:47] LABS: SQUAMOUS EPITHELIAL CELL,UR MOD Squamous (<= Few); WBC,URINE >25 /HPF (0-5)
[2022-03-22 19:48] LABS: BACTERIA,URINE Moderate /HPF (None Seen)
[2022-03-22] MEDS: FLUTICASONE NASAL SPRAY NAS SCH (20:35)
[2022-03-22] MEDS: guaiFENesin 600 MG TABLET PO SCH (20:35)
[2022-03-22] MEDS: ACETAMINOPHEN 325 MG TABLET PO PRN (20:40)
[2022-03-23] MEDS: SODIUM CHLORIDE FLUSH 0.9% 10 ML SYRINGE IVP SCH ×3 (00:32→16:42)
[2022-03-23] MEDS: ACETAMINOPHEN 325 MG TABLET PO PRN (00:35)
[2022-03-23] MEDS: GABAPENTIN 300 MG CAPSULE PO SCH ×5 (03:24→21:49)
[2022-03-23 05:48] LABS: BASOPHILS % (AUTO) 0.1 %; EOSINOPHILS % (AUTO) 0.7 %; HCT - HEMATOCRIT 33.6 % (37.0-47.0); HGB - HEMOGLOBIN 12.4 g/dL (12.0-16.0); LYMPHOCYTES % (AUTO) 1.6 %; MEAN CORPUSCULAR HEMOGLOBIN 33.3 pg (27.0-31.0); MEAN CORPUSCULAR HGB CONC 36.9 g/dL (32.0-36.0); MEAN CORPUSCULAR VOLUME 90.3 fL (81.0-99.0); MONOCYTES % (AUTO) 1.1 %; NEUTROPHILS % (AUTO) 95.8 %; PLT - PLATELET COUNT 167 10^3/uL (130-450); RED BLOOD COUNT 3.72 10^6/uL (4.20-5.40); RED CELL DISTRIBUTION WIDTH 11.5 % (12.0-15.0); WHITE BLOOD COUNT 10.3 x10^3/uL (4.8-10.8)
[2022-03-23] MEDS: SODIUM CHLORIDE 0.9% 1,000 ML IV SCH ×2 (05:50→16:41)
[2022-03-23 05:51] LABS: ABNORMAL LYMPHS % (MANUAL) 0 %
[2022-03-23 05:59] LABS: CALCIUM 7.4 mg/dL (8.5-10.3); MAGNESIUM 1.7 mg/dL (1.7-2.8); PHOSPHORUS 3.2 mg/dL (2.5-4.6); POTASSIUM 3.3 mmol/L (3.5-5.0)
[2022-03-23 06:21] LABS: BAND NEUTROPHILS % (MANUAL) 5 %; LYMPHOCYTES # (MANUAL) 0.4 10^3/uL (1.5-3.5); LYMPHOCYTES % (MANUAL) 4 %; MONOCYTES # (MANUAL) 0.1 10^3/uL (0.0-1.0); NEUTROPHILS # (MANUAL) 9.8 10^3/uL (1.5-6.6); PLATELET ESTIMATE, MANUAL NORMAL (130-450,000) (NORMAL); PLATELET MORPHOLOGY NORMAL APPEARANCE (NORMAL); RBC MORPHOLOGY (MULTIPLE) NORMAL APPEARANCE (NORMAL); WBC MORPHOLOGY (MULTIPLE) NORMAL APPEARANCE (NORMAL)
[2022-03-23 06:22] LABS: DIFFERENTIAL COMMENT MANUAL DIFFERENTIAL
[2022-03-23] MEDS ORDERED: LEVOTHYROXINE 125 MCG TABLET PO SCH (07:00)
[2022-03-23] MEDS: guaiFENesin 600 MG TABLET PO SCH ×2 (08:41→21:49)
[2022-03-23] MEDS: DEXAMETHASONE 4 MG/ML VIAL IVP SCH (08:41)
[2022-03-23] MEDS: ENOXAPARIN 40 MG/0.4 ML SYRINGE SUBQ SCH (08:41)
[2022-03-23] MEDS: amLODIPine 5 MG TABLET PO SCH (08:42)
[2022-03-23] MEDS: POTASSIUM CHLOR 10 MEQ/100 ML 10 MEQ/100 ML BAG IV SCH ×2 (08:43→09:52)
[2022-03-23] MEDS: FLUTICASONE NASAL SPRAY NAS SCH (08:51)
[2022-03-23] MEDS: REMDESIVIR 100MG VIAL 100 MG in SODIUM CHLORIDE 0.9% 100ML 100 ML IV SCH (09:51)
--- NOTE | 2022-03-23 13:59 | PROVIDER PROGRESS NOTE ---
Assessment/Plan - Problem List (1) Acute respiratory failure with hypoxia Assessment/Plan: She has evidence of COVID-pneumonia with a groundglass changes on chest x-ray, and possibly a community-acquired lobar pneumonia and also has a history of asthma all of which could be adding to her hypoxia. We are treating with IV antibiotics, IV steroids, remdesivir and inhalers. Give supplemental oxygen to keep O2 sats greater than 90% and wean down to room air as tolerated (2) CAP (community acquired pneumonia) Conclusion/Plan: Awaiting spt cx result We started empiric antibx for her CAP, with Levaquin, given the cephalosporin allergy. Also ordered are Mucinex and Robitussin for pulmonary toilet. (3) COVID Conclusion/Plan: She had pulmonary and GI symptoms and fever at home, consistent with COVID. Decadron and Remdesivir are ordered. Diet will be pured and advance as tolerated, given the diarrhea. IV fluids ordered. Isolation ordered. (4) Hyponatremia Conclusion/Plan: This persists and may be from poor intake given the GI symptoms of COVID versus from sodium losses with her HCTZ. We started IV fluids using NS. Following serum Na q12 hours to avoid excessively rapid correction. We are holding her home med of HCTZ (5) SHAGGY (acute kidney injury) Conclusion/Plan: Her creatinine was 1.3 at admission, her usual baseline creatinine is 0.8. This is likely from volume depletion. Fluids by IV are ordered (6) Asthma Conclusion/Plan: Will order her own handheld inhalers to be used, not nebulizers while she is COVID-positive and needs respiratory isolation. Decadron daily will be started Will also give supplemental oxygen, keeping sats greater than 90%. Qualifiers: Asthma severity: unspecified severity Asthma persistence: unspecified Asthma complication type: unspecified Qualified Code(s): J45.909 - Unspecified asthma, uncomplicated (7) HTN (hypertension) Conclusion/Plan: We will continue with her usual amlodipine dose but hold the HCTZ because of the Hyponatremia abd while she needs IV hydration (8) Hypothyroidism Conclusion/Plan: TSH level came back excessively low, consistent with too high of a Synthroid dose Will decrease the Synthroid dose from 125 mcg daily to 100 mcg daily. This will need to be followed up in several months after discharge (9) Chronic pain Conclusion/Plan: She requested we restart her home gabapentin which helps her chronic pain. This will be ordered. (6) Asthma Qualifiers: Asthma severity: unspecified severity Asthma persistence: unspecified Asthma complication type: unspecified Qualified Code(s): J45.909 - Unspecified asthma, uncomplicated - Current Meds Current Meds: Current Medications Generic Name Dose Route Start Last Admin Trade Name Freq PRN Reason Stop Dose Admin Acetaminophen 650 mg 03/22/22 13:02 03/23/22 00:35 Acetaminophen 325 Mg Tablet PO 650 mg Q4HR PRN Administration Pain 1 to 4, or Fever Amlodipine Besylate 2.5 mg 03/23/22 09:00 03/23/22 08:42 Amlodipine 5 Mg Tablet PO 2.5 mg DAILY DELMER Administration Dexamethasone 6 mg 03/23/22 09:00 03/23/22 08:41 Dexamethasone 4 Mg/Ml Vial IVP 6 mg DAILY DELMER Administration Enoxaparin Sodium 40 mg 03/23/22 09:00 03/23/22 08:41 Enoxaparin 40 Mg/0.4 Ml Syringe SUBQ 40 mg DAILY DELMER Administration Fluticasone Propionate 1 sprays 03/22/22 21:00 03/23/22 08:51 Fluticasone Nasal [place] ROD 1 sprays BID DELMER Administration Gabapentin 300 mg 03/23/22 03:00 03/23/22 03:24 Gabapentin 300 Mg Capsule PO 03/24/22 02:59 300 mg ONCE DELMER Administration Guaifenesin 10 ml 03/22/22 17:56 03/22/22 19:11 Guaifenesin/Dextromethorphan 10 Ml Udc PO 10 ml Q6HR PRN Administration Cough Guaifenesin 600 mg 03/22/22 21:00 03/23/22 08:41 Guaifenesin 600 Mg Tablet PO 600 mg BID DELMER Administration Remdesivir 100 mg/ Sodium 100 mls @ 200 mls/hr 03/23/22 09:00 03/23/22 09:51 Chloride IV 03/26/22 09:29 200 mls/hr DAILY DELMER Administration Levofloxacin 750 mg in 150 mls @ 100 mls/hr 03/22/22 18:00 03/22/22 20:41 Levaquin 750 Mg/150 Ml IV Infused Q24H DELMER Infusion Sodium Chloride 1,000 mls @ 100 mls/hr 03/22/22 19:00 03/23/22 05:50 Normal Saline 0.9% IV 100 mls/hr .Q10H DELMER Administration Sodium Chloride 10 ml 03/22/22 17:00 03/23/22 09:52 Sodium Chloride Flush 0.9% 10 Ml Syringe IVP Not Given 0100,0900,1700 DELMER - Lab Result Fish Bone Diagrams: 03/23/22 05:20 03/23/22 05:20 - Additional Planning My Orders: My Active Orders 03/22/22 13:02 Activity Orders [RC] Q2HR IO [RC] IOSHIFT Incentive Spirometry - RT [RC] TID Initiate Bowel Care Protocol [RC] .protocol Initiate Line Care Protocol [RC] QSHIFT Initiate Personal Care Protoco [RC] .protocol Oxygen Therapy [RC] .PRN Vital Signs [RC] Q4HR Acetaminophen [Tylenol] 650 mg PO Q4HR PRN Ondansetron Inj [Zofran Inj] 4 mg IVP Q6HR PRN Sodium Chloride Flush 0.9% [Normal Saline Flush 0.9%] 10 ml IVP PRN PRN Code Status [OTHERS] Routine Condition of Patient [OTHERS] Routine DVT Prophylaxis [OTHERS] Routine 03/22/22 13:05 Isolation [Infection Precautions] [RC] QSHIFT 03/22/22 13:47 Albuterol [Proventil Hfa] 2 puffs INH RTQ4H PRN 03/22/22 17:00 Sodium Chloride Flush 0.9% [Normal Saline Flush 0.9%] 10 ml IVP 0100,0900,1700 03/22/22 17:56 guaiFENesin/DEXTROMETHORPHAN [Robitussin Dm] 10 ml PO Q6HR PRN 03/22/22 18:00 levoFLOXacin 750 MG/150 ML [Levaquin 750 mg/150 ml] 750 mg in 150 ml IV Q24H 03/22/22 19:00 Sodium Chloride 0.9% [Normal Saline 0.9%] 1,000 ml IV 100 mls/hr 03/22/22 21:00 Fluticasone [Flonase] 1 sprays ROD BID guaiFENesin [Mucinex] 600 mg PO BID 03/23/22 Breakfast Soft Mechanical Diet [DIET] 03/23/22 09:00 Enoxaparin [Lovenox] 40 mg SUBQ DAILY Remdesivir 100Mg Vial [Veklury] 100 mg Sodium Chloride 0.9% 100Ml [Normal Saline 0.9% 100Ml] 100 ml IV DAILY amLODIPine [Norvasc] 2.5 mg PO DAILY dexAMETHasone [Decadron] 6 mg IVP DAILY 03/23/22 13:16 CUL, RESPIRATORY [RM] Stat 03/23/22 14:00 Gabapentin [Neurontin] 600 mg PO TID 03/24/22 05:00 BMP - BASIC METABOLIC PANEL [CHEM] DAILYLAB CBC - COMP BLD CT W/AUTO DIFF [HEME] DAILYLAB 03/24/22 07:00 Levothyroxine [Synthroid] 100 mcg PO QDAC 03/25/22 05:00 BMP - BASIC METABOLIC PANEL [CHEM] DAILYLAB CBC - COMP BLD CT W/AUTO DIFF [HEME] DAILYLAB 03/26/22 05:00 BMP - BASIC METABOLIC PANEL [CHEM] DAILYLAB CBC - COMP BLD CT W/AUTO DIFF [HEME] DAILYLAB Subjective - Subjective Patient Reports: Other (Patient describes no change. Still has no appetite, nausea if she eats too much, still has a cough, feels better at rest wearing oxygen.) Objective Vital Signs: Vital Signs - 24 hr 03/22/22 03/22/22 03/22/22 14:04 14:20 15:36 Temperature 36.9 C 36.4 C L Heart Rate [ 69 68 Brachial] Respiratory 18 20 Rate Blood Pressure [Left Brachial artery] Blood Pressure 115/46 L 114/57 L [Right Brachial artery] O2 Saturation 92 93 If not protocol 4 3.5 3.5 : Oxygen Flow, liters/minute 03/22/22 03/22/22 03/22/22 16:38 19:49 23:52 Temperature 37.0 C 36.6 C Heart Rate [ 64 62 Brachial] Respiratory 20 18 Rate Blood Pressure [Left Brachial artery] Blood Pressure 134/61 H 124/49 L [Right Brachial artery] O2 Saturation 94 95 If not protocol 4 3.5 3 : Oxygen Flow, liters/minute 03/23/22 03/23/22 03/23/22 05:26 06:59 07:16 Temperature 36.3 C L Heart Rate [ 59 L Brachial] Respiratory 16 Rate Blood Pressure [Left Brachial artery] Blood Pressure 126/64 [Right Brachial artery] O2 Saturation 97 92 If not protocol 3 2 2 : Oxygen Flow, liters/minute 03/23/22 03/23/22 08:01 11:14 Temperature 36.5 C 36.9 C Heart Rate [ 65 66 Brachial] Respiratory 18 18 Rate Blood Pressure 131/56 H 113/59 L [Left Brachial artery] Blood Pressure [Right Brachial artery] O2 Saturation 96 97 If not protocol 2 2 : Oxygen Flow, liters/minute Oxygen O2 Source Nasal cannula Oxygen Flow Rate 2 I&O (Last 24 Hrs): Intake and Output Totals x24h 03/21/22 03/22/22 03/23/22 23:59 23:59 23:59 Intake Total 1899 1861 Output Total 600 Balance 1299 1861 General: Alert, Other (exam done remotely) HEENT: Mucous membr. moist/pink, Other (wearing O2 n.c.) Neck: Supple Neuro: Non Focal Cardiovascular: Regular rate Respiratory: No respiratory distress (at rest on O2 per n.c.) Abdomen: Soft Extremities: No edema - Results Results: Laboratory Results WBC 10.3 x10^3/uL (4.8-10.8) 03/23/22 05:20 RBC 3.72 10^6/uL (4.20-5.40) L 03/23/22 05:20 Hgb 12.4 g/dL (12.0-16.0) 03/23/22 05:20 Hct 33.6 % (37.0-47.0) L 03/23/22 05:20 MCV 90.3 fL (81.0-99.0) 03/23/22 05:20 MCH 33.3 pg (27.0-31.0) H 03/23/22 05:20 MCHC 36.9 g/dL (32.0-36.0) H 03/23/22 05:20 RDW 11.5 % (12.0-15.0) L 03/23/22 05:20 Plt Count 167 10^3/uL (130-450) 03/23/22 05:20 MPV 10.0 fL (7.9-10.8) 03/23/22 05:20 Neut # (Auto) Not Reportable 03/23/22 05:20 Lymph # (Auto) Not Reportable 03/23/22 05:20 [place] # (Auto) Not Reportable 03/23/22 05:20 Eos # (Auto) Not Reportable 03/23/22 05:20 Baso # (Auto) Not Reportable 03/23/22 05:20 Absolute Nucleated RBC Not Reportable 03/23/22 05:20 Total Counted 100 03/23/22 05:20 Band Neuts % (Manual) 5 % (0-10) 03/23/22 05:20 Abnorm Lymph % (Manual) 0 % 03/23/22 05:20 Metamyelocytes % 1 % (-0) H 03/22/22 12:10 Nucleated RBC % Not Reportable 03/23/22 05:20 Neutrophils # (Manual) 9.8 10^3/uL (1.5-6.6) H 03/23/22 05:20 Lymphocytes # (Manual) 0.4 10^3/uL (1.5-3.5) L 03/23/22 05:20 Monocytes # (Manual) 0.1 10^3/uL (0.0-1.0) 03/23/22 05:20 Eosinophils # (Manual) 0.0 10^3/uL (0-0.7) 03/23/22 05:20 Basophils # (Manual) 0.0 10^3/uL (0-0.1) 03/23/22 05:20 Differential Comment MANUAL DIFFERENTIAL 03/23/22 05:20 Manual Slide Review Indicated 03/22/22 12:10 WBC Morphology NORMAL APPEARANCE (NORMAL) 03/23/22 05:20 Platelet Estimate NORMAL (130-450,000) (NORMAL) 03/23/22 05:20 Platelet Morphology NORMAL APPEARANCE (NORMAL) 03/23/22 05:20 RBC Morph Micro Appear NORMAL APPEARANCE (NORMAL) 03/23/22 05:20 PT 12.2 secs (9.9-12.6) 03/22/22 12:10 INR 1.1 (0.8-1.2) 03/22/22 12:10 APTT 30.9 secs (24.9-33.3) 03/22/22 12:10 Sodium 123 mmol/L (135-145) L 03/23/22 05:20 Potassium 3.3 mmol/L (3.5-5.0) L 03/23/22 05:20 Chloride 88 mmol/L (101-111) L 03/23/22 05:20 Carbon Dioxide 24 mmol/L (21-32) 03/23/22 05:20 Anion Gap 11.0 (6-13) 03/23/22 05:20 BUN 26 mg/dL (6-20) H 03/23/22 05:20 Creatinine 1.0 mg/dL (0.4-1.0) 03/23/22 05:20 Estimated GFR (MDRD) 54 (>89) L 03/23/22 05:20 Glucose 98 mg/dL (70-100) 03/23/22 05:20 Lactic Acid 1.9 mmol/L (0.5-2.2) 03/22/22 12:10 Calcium 7.4 mg/dL (8.5-10.3) L 03/23/22 05:20 Phosphorus 3.2 mg/dL (2.5-4.6) 03/23/22 05:20 Magnesium 1.7 mg/dL (1.7-2.8) 03/23/22 05:20 Total Bilirubin 2.0 mg/dL (0.2-1.0) H 03/22/22 12:10 AST 42 IU/L (10-42) 03/22/22 12:10 ALT 18 IU/L (10-60) 03/22/22 12:10 Alkaline Phosphatase 60 IU/L (42-121) 03/22/22 12:10 Total Protein 6.4 g/dL (6.7-8.2) L 03/22/22 12:10 Albumin 3.3 g/dL (3.2-5.5) 03/22/22 12:10 Globulin 3.1 g/dL (2.1-4.2) 03/22/22 12:10 Albumin/Globulin Ratio 1.1 (1.0-2.2) 03/22/22 12:10 Lipase 27 U/L (22-51) 03/22/22 12:10 TSH 0.27 uIU/mL (0.34-5.60) L 03/23/22 05:20 Urine Color YELLOW 03/22/22 18:50 Urine Clarity CLOUDY (CLEAR) 03/22/22 18:50 Urine pH 6.0 PH (5.0-7.5) 03/22/22 18:50 Ur Specific [place] 1.010 (1.002-1.030) 03/22/22 18:50 Urine Protein 30 mg/dL (NEGATIVE) H 03/22/22 18:50 Urine Glucose (UA) NEGATIVE mg/dL (NEGATIVE) 03/22/22 18:50 Urine Ketones NEGATIVE mg/dL (NEGATIVE) 03/22/22 18:50 Urine Occult Blood MODERATE (NEGATIVE) H 03/22/22 18:50 Urine Nitrite NEGATIVE (NEGATIVE) 03/22/22 18:50 Urine Bilirubin NEGATIVE (NEGATIVE) 03/22/22 18:50 Urine Urobilinogen 0.2 (NORMAL) E.U./dL (NORMAL) 03/22/22 18:50 Ur Leukocyte Esterase MODERATE (NEGATIVE) H 03/22/22 18:50 Urine RBC 11-25 /HPF (0-5) H 03/22/22 18:50 Urine WBC >25 /HPF (0-5) H 03/22/22 18:50 Ur Squamous Epith Cells MOD Squamous (<= Few) H 03/22/22 18:50 Urine Bacteria Moderate /HPF (None Seen) H 03/22/22 18:50 Ur Microscopic Review INDICATED 03/22/22 18:50 Urine Culture Comments NOT INDICATED 03/22/22 18:50 Nasal Adenovirus (PCR) NOT DETECTED 03/22/22 12:15 Nasal B. parapertussis DNA (PCR) NOT DETECTED 03/22/22 12:15 Nasal Coronavir 229E PCR NOT DETECTED 03/22/22 12:15 Nasal Coronavir HKU1 PCR NOT DETECTED 03/22/22 12:15 Nasal Coronavir NL63 PCR NOT DETECTED 03/22/22 12:15 Nasal Coronavir OC43 PCR NOT DETECTED 03/22/22 12:15 Nasal Enterovir/Rhinovir PCR NOT DETECTED 03/22/22 12:15 Nasal Influenza B PCR NOT DETECTED 03/22/22 12:15 Nasal Influenza A PCR NOT DETECTED 03/22/22 12:15 Nasal Parainfluen 1 PCR NOT DETECTED 03/22/22 12:15 Nasal Parainfluen 2 PCR NOT DETECTED 03/22/22 12:15 Nasal Parainfluen 3 PCR NOT DETECTED 03/22/22 12:15 Nasal Parainfluen 4 PCR NOT DETECTED 03/22/22 12:15 Nasal RSV (PCR) NOT DETECTED 03/22/22 12:15 Nasal B.pertussis DNA PCR NOT DETECTED 03/22/22 12:15 Nasal C.pneumoniae (PCR) NOT DETECTED 03/22/22 12:15 Rod Human Metapneumo PCR NOT DETECTED 03/22/22 12:15 Nasal M.pneumoniae (PCR) NOT DETECTED 03/22/22 12:15 Nasal SARS-CoV-2 (PCR) DETECTED A 03/22/22 12:15
[2022-03-23] MEDS: levoFLOXacin 750 MG/150 ML 750 MG/150 ML BAG IV SCH (18:36)
[2022-03-24] MEDS: FLUTICASONE NASAL SPRAY NAS SCH ×3 (00:17→21:23)
[2022-03-24] MEDS: SODIUM CHLORIDE FLUSH 0.9% 10 ML SYRINGE IVP SCH ×3 (02:48→17:47)
[2022-03-24] MEDS: SODIUM CHLORIDE 0.9% 1,000 ML IV SCH ×3 (02:48→14:38)
[2022-03-24] MEDS ORDERED: BENZOCAINE/MENTHOL LOZENGE MM PRN (03:34)
[2022-03-24 05:01] LABS: PLT - PLATELET COUNT 217 10^3/uL (130-450); RED CELL DISTRIBUTION WIDTH 11.5 % (12.0-15.0)
[2022-03-24 05:10] LABS: BASOPHILS # (AUTO) 0.1 10^3/uL (0.0-0.1); BASOPHILS % (AUTO) 0.4 %; EOSINOPHILS % (AUTO) 0.1 %; HGB - HEMOGLOBIN 11.8 g/dL (12.0-16.0); LYMPHOCYTES # (AUTO) 0.2 10^3/uL (1.5-3.5); LYMPHOCYTES % (AUTO) 1.8 %; MEAN CORPUSCULAR HEMOGLOBIN 33.2 pg (27.0-31.0); MEAN CORPUSCULAR HGB CONC 36.9 g/dL (32.0-36.0); MEAN CORPUSCULAR VOLUME 90.1 fL (81.0-99.0); MEAN PLATELET VOLUME 9.2 fL (7.9-10.8); MONOCYTES # (AUTO) 0.4 10^3/uL (0.0-1.0); MONOCYTES % (AUTO) 3.5 %; NEUTROPHILS # (AUTO) 11.2 10^3/uL (1.5-6.6); NEUTROPHILS % (AUTO) 91.7 %; RED BLOOD COUNT 3.55 10^6/uL (4.20-5.40); WHITE BLOOD COUNT 12.2 x10^3/uL (4.8-10.8)
[2022-03-24 05:11] LABS: CALCIUM 7.6 mg/dL (8.5-10.3); CREATININE 0.7 mg/dL (0.4-1.0); POTASSIUM 3.1 mmol/L (3.5-5.0)
[2022-03-24] MEDS: GABAPENTIN 300 MG CAPSULE PO SCH ×3 (06:23→21:23)
[2022-03-24] MEDS: LEVOTHYROXINE 100 MCG TABLET PO SCH (06:24)
[2022-03-24] MEDS: guaiFENesin 600 MG TABLET PO SCH ×2 (08:47→21:23)
[2022-03-24] MEDS: amLODIPine 5 MG TABLET PO SCH (08:47)
[2022-03-24] MEDS: POTASSIUM CHLOR 10 MEQ/100 ML 10 MEQ/100 ML BAG IV SCH ×4 (08:50→14:38)
[2022-03-24] MEDS: DEXAMETHASONE 4 MG/ML VIAL IVP SCH (08:51)
[2022-03-24] MEDS: ENOXAPARIN 40 MG/0.4 ML SYRINGE SUBQ SCH (08:56)
--- NOTE | 2022-03-24 09:14 | PROVIDER PROGRESS NOTE ---
Assessment/Plan - Problem List (1) Acute respiratory failure with hypoxia Assessment/Plan: Improving She had evidence of COVID-pneumonia with a groundglass changes on chest x-ray, and possibly a community-acquired lobar pneumonia and also has a history of asthma all of which could have added to her hypoxia. We are treating with IV antibiotics, IV steroids, remdesivir and inhalers. Giving supplemental oxygen to keep O2 sats greater than 90% and weaning down to room air as tolerated, which was just today. Anticipate discharge tomorrow. She will have an oximetry walk test done on the day of discharge to see if she still needs supplemental oxygen with activity. (2) CAP (community acquired pneumonia) Conclusion/Plan: Awaiting spt cx result We started empiric antibx for her CAP, with Levaquin, given the cephalosporin allergy. Also ordered are Mucinex and Robitussin for pulmonary toilet. (3) COVID-19 Conclusion/Plan: She had pulmonary and GI symptoms and fever at home, consistent with COVID. Decadron and Remdesivir are ordered. Diet continues to be pured and advance as tolerated, given the diarrhea. IV fluids ordered. Isolation ordered. (4) Hyponatremia Conclusion/Plan: This is improving and may be from poor intake given the GI symptoms of COVID versus from sodium losses with her HCTZ. We started IV fluids using NS. Following serum Na q12 hours to avoid excessively rapid correction. We are holding her home med of HCTZ (5) Hypokalemia Conclusion/Plan: Likely related to poor p.o. intake because of the GI symptoms of COVID and from being on HCTZ. Will replace with K riders since there was nausea and not give p.o. potassium Follow BMP daily (6) Asthma Conclusion/Plan: We ordered MDI inhalers to be used as needed, not nebulizers while she is COVID- positive and needs respiratory isolation. Decadron daily was started We also ordered supplemental oxygen, keeping sats greater than 90%. Qualifiers: Asthma severity: unspecified severity Asthma persistence: unspecified Asthma complication type: unspecified Qualified Code(s): J45.909 - Unspecified asthma, uncomplicated (7) HTN (hypertension) Conclusion/Plan: We are continuing with her usual amlodipine dose but holding the HCTZ because of the Hyponatremia and because she needs IV hydration (8) Hypothyroidism Conclusion/Plan: TSH level came back excessively low, consistent with too high of a Synthroid dose Will decrease the Synthroid dose from 125 mcg daily to 100 mcg daily. This will need to be followed up in several months after discharge (9) Chronic pain Conclusion/Plan: She requested and we restart her home gabapentin which helps her chronic pain. This will be ordered. (10) SHAGGY (acute kidney injury) Conclusion/Plan: Resolved. Her creatinine was 1.3 at admission, her usual baseline creatinine is 0.8. This is likely from volume depletion. Fluids by IV are ordered - Current Meds Current Meds: Current Medications Generic Name Dose Route Start Last Admin Trade Name Freq PRN Reason Stop Dose Admin Acetaminophen 650 mg 03/22/22 13:02 03/23/22 00:35 Acetaminophen 325 Mg Tablet PO 650 mg Q4HR PRN Administration Pain 1 to 4, or Fever Amlodipine Besylate 2.5 mg 03/23/22 09:00 03/24/22 08:47 Amlodipine 5 Mg Tablet PO 2.5 mg DAILY DELMER Administration Dexamethasone 6 mg 03/23/22 09:00 03/24/22 08:51 Dexamethasone 4 Mg/Ml Vial IVP 6 mg DAILY DELMER Administration Enoxaparin Sodium 40 mg 03/23/22 09:00 03/24/22 08:56 Enoxaparin 40 Mg/0.4 Ml Syringe SUBQ 40 mg DAILY DELMER Administration Fluticasone Propionate 1 sprays 03/22/22 21:00 03/24/22 08:56 Fluticasone Nasal [place] ROD 1 sprays BID DELMER Administration Gabapentin 600 mg 03/23/22 14:00 03/24/22 06:23 Gabapentin 300 Mg Capsule PO 600 mg TID DELMER Administration Guaifenesin 10 ml 03/22/22 17:56 03/22/22 19:11 Guaifenesin/Dextromethorphan 10 Ml Udc PO 10 ml Q6HR PRN Administration Cough Guaifenesin 600 mg 03/22/22 21:00 03/24/22 08:47 Guaifenesin 600 Mg Tablet PO 600 mg BID DELMER Administration Remdesivir 100 mg/ Sodium 100 mls @ 200 mls/hr 03/23/22 09:00 03/23/22 16:32 Chloride IV 03/26/22 09:29 Infused DAILY DELMER Infusion Levofloxacin 750 mg in 150 mls @ 100 mls/hr 03/22/22 18:00 03/24/22 00:21 Levaquin 750 Mg/150 Ml IV Infused Q24H DELMER Infusion Sodium Chloride 1,000 mls @ 100 mls/hr 03/22/22 19:00 03/24/22 02:48 Normal Saline 0.9% IV 100 mls/hr .Q10H DELMER Administration Potassium Chloride 10 meq in 100 mls @ 100 mls/hr 03/24/22 08:00 03/24/22 08:50 Potassium Chloride IV 03/24/22 11:59 100 mls/hr Q1H DELMER Administration Levothyroxine Sodium 100 mcg 03/24/22 07:00 03/24/22 06:24 Levothyroxine 100 Mcg Tablet PO 100 mcg QDAC DELMER Administration Sodium Chloride 10 ml 03/22/22 17:00 03/24/22 08:52 Sodium Chloride Flush 0.9% 10 Ml Syringe IVP 10 ml 0100,0900,1700 DELMER Administration - Lab Result [place] Diagrams: 03/24/22 04:54 03/24/22 04:54 - Additional Planning My Orders: My Active Orders 03/23/22 09:00 Enoxaparin [Lovenox] 40 mg SUBQ DAILY Remdesivir 100Mg Vial [Veklury] 100 mg Sodium Chloride 0.9% 100Ml [Normal Saline 0.9% 100Ml] 100 ml IV DAILY amLODIPine [Norvasc] 2.5 mg PO DAILY dexAMETHasone [Decadron] 6 mg IVP DAILY 03/23/22 14:00 Gabapentin [Neurontin] 600 mg PO TID 03/24/22 03:34 Benzocaine/Menthol [Cepacol] 1 lozenge MM Q2HR PRN 03/24/22 07:00 Levothyroxine [Synthroid] 100 mcg PO QDAC 03/24/22 08:00 Potassium Chlor 10 Meq/100 ml [Potassium Chloride] 10 meq in 100 ml IV Q1H 03/25/22 05:00 BMP - BASIC METABOLIC PANEL [CHEM] DAILYLAB CBC - COMP BLD CT W/AUTO DIFF [HEME] DAILYLAB MAGNESIUM [CHEM] DAILYLAB 03/26/22 05:00 BMP - BASIC METABOLIC PANEL [CHEM] DAILYLAB CBC - COMP BLD CT W/AUTO DIFF [HEME] DAILYLAB Subjective - Subjective Patient Reports: Feeling Better (Has more energy, less SOB, same cough and same poor appetite) Objective Vital Signs: Vital Signs - 24 hr 03/23/22 03/23/22 03/23/22 11:14 15:27 15:51 Temperature 36.9 C 36.3 C L Heart Rate [ 66 63 Brachial] Respiratory 18 20 Rate Blood Pressure 113/59 L 125/57 L [Left Brachial artery] O2 Saturation 97 97 If not protocol 2 1 2 : Oxygen Flow, liters/minute 03/23/22 03/23/22 03/23/22 18:40 18:47 19:52 Temperature 36.6 C Heart Rate [ 68 Brachial] Respiratory 16 16 Rate Blood Pressure 119/58 L [Left Brachial artery] O2 Saturation 98 96 If not protocol 1 1 0.5 : Oxygen Flow, liters/minute 03/23/22 03/23/22 03/24/22 21:52 23:55 03:30 Temperature 36.4 C L 36.6 C Heart Rate [ 68 68 Brachial] Respiratory 16 14 18 Rate Blood Pressure 123/61 135/58 H [Left Brachial artery] O2 Saturation 94 95 92 If not protocol 0.5 0.5 0.5 : Oxygen Flow, liters/minute 03/24/22 03/24/22 06:30 07:53 Temperature 36.5 C Heart Rate [ 74 Brachial] Respiratory 18 Rate Blood Pressure 119/55 L [Left Brachial artery] O2 Saturation 94 96 If not protocol 0.5 : Oxygen Flow, liters/minute Oxygen O2 Source Nasal cannula Oxygen Flow Rate 2 I&O (Last 24 Hrs): Intake and Output Totals x24h 03/22/22 03/23/22 03/24/22 23:59 23:59 23:59 Intake Total 1899 3331 1900 Output Total 600 1150 850 Balance 1299 2181 1050 General: Alert, Other (Exam done remotely) Neck: Supple Neuro: Alert, Non Focal Cardiovascular: Regular rate Respiratory: No respiratory distress (breathing room air FIO2 for the past 4 hours) Abdomen: Soft Extremities: No edema - Results Results: Laboratory Results WBC 12.2 x10^3/uL (4.8-10.8) H 03/24/22 04:54 RBC 3.55 10^6/uL (4.20-5.40) L 03/24/22 04:54 Hgb 11.8 g/dL (12.0-16.0) L 03/24/22 04:54 Hct 32.0 % (37.0-47.0) L 03/24/22 04:54 MCV 90.1 fL (81.0-99.0) 03/24/22 04:54 MCH 33.2 pg (27.0-31.0) H 03/24/22 04:54 MCHC 36.9 g/dL (32.0-36.0) H 03/24/22 04:54 RDW 11.5 % (12.0-15.0) L 03/24/22 04:54 Plt Count 217 10^3/uL (130-450) 03/24/22 04:54 MPV 9.2 fL (7.9-10.8) 03/24/22 04:54 Neut # (Auto) 11.2 10^3/uL (1.5-6.6) H 03/24/22 04:54 Lymph # (Auto) 0.2 10^3/uL (1.5-3.5) L 03/24/22 04:54 [place] # (Auto) 0.4 10^3/uL (0.0-1.0) 03/24/22 04:54 Eos # (Auto) 0.0 10^3/uL (0.0-0.7) 03/24/22 04:54 Baso # (Auto) 0.1 10^3/uL (0.0-0.1) 03/24/22 04:54 Absolute Nucleated RBC 0.00 x10^3/uL 03/24/22 04:54 Total Counted 100 03/23/22 05:20 Band Neuts % (Manual) 5 % (0-10) 03/23/22 05:20 Abnorm Lymph % (Manual) 0 % 03/23/22 05:20 Metamyelocytes % 1 % (-0) H 03/22/22 12:10 Nucleated RBC % 0.0 /100WBC 03/24/22 04:54 Neutrophils # (Manual) 9.8 10^3/uL (1.5-6.6) H 03/23/22 05:20 Lymphocytes # (Manual) 0.4 10^3/uL (1.5-3.5) L 03/23/22 05:20 Monocytes # (Manual) 0.1 10^3/uL (0.0-1.0) 03/23/22 05:20 Eosinophils # (Manual) 0.0 10^3/uL (0-0.7) 03/23/22 05:20 Basophils # (Manual) 0.0 10^3/uL (0-0.1) 03/23/22 05:20 Differential Comment MANUAL DIFFERENTIAL 03/23/22 05:20 Manual Slide Review Indicated 03/22/22 12:10 WBC Morphology NORMAL APPEARANCE (NORMAL) 03/23/22 05:20 Platelet Estimate NORMAL (130-450,000) (NORMAL) 03/23/22 05:20 Platelet Morphology NORMAL APPEARANCE (NORMAL) 03/23/22 05:20 RBC Morph Micro Appear NORMAL APPEARANCE (NORMAL) 03/23/22 05:20 PT 12.2 secs (9.9-12.6) 03/22/22 12:10 INR 1.1 (0.8-1.2) 03/22/22 12:10 APTT 30.9 secs (24.9-33.3) 03/22/22 12:10 Sodium 130 mmol/L (135-145) L 03/24/22 04:54 Potassium 3.1 mmol/L (3.5-5.0) L 03/24/22 04:54 Chloride 100 mmol/L (101-111) L 03/24/22 04:54 Carbon Dioxide 22 mmol/L (21-32) 03/24/22 04:54 Anion Gap 8.0 (6-13) 03/24/22 04:54 BUN 20 mg/dL (6-20) 03/24/22 04:54 Creatinine 0.7 mg/dL (0.4-1.0) 03/24/22 04:54 Estimated GFR (MDRD) 81 (>89) L 03/24/22 04:54 Glucose 111 mg/dL (70-100) H 03/24/22 04:54 Lactic Acid 1.9 mmol/L (0.5-2.2) 03/22/22 12:10 Calcium 7.6 mg/dL (8.5-10.3) L 03/24/22 04:54 Phosphorus 3.2 mg/dL (2.5-4.6) 03/23/22 05:20 Magnesium 1.7 mg/dL (1.7-2.8) 03/23/22 05:20 Total Bilirubin 2.0 mg/dL (0.2-1.0) H 03/22/22 12:10 AST 42 IU/L (10-42) 03/22/22 12:10 ALT 18 IU/L (10-60) 03/22/22 12:10 Alkaline Phosphatase 60 IU/L (42-121) 03/22/22 12:10 Total Protein 6.4 g/dL (6.7-8.2) L 03/22/22 12:10 Albumin 3.3 g/dL (3.2-5.5) 03/22/22 12:10 Globulin 3.1 g/dL (2.1-4.2) 03/22/22 12:10 Albumin/Globulin Ratio 1.1 (1.0-2.2) 03/22/22 12:10 Lipase 27 U/L (22-51) 03/22/22 12:10 TSH 0.27 uIU/mL (0.34-5.60) L 03/23/22 05:20 Urine Color YELLOW 03/22/22 18:50 Urine Clarity CLOUDY (CLEAR) 03/22/22 18:50 Urine pH 6.0 PH (5.0-7.5) 03/22/22 18:50 Ur Specific [place] 1.010 (1.002-1.030) 03/22/22 18:50 Urine Protein 30 mg/dL (NEGATIVE) H 03/22/22 18:50 Urine Glucose (UA) NEGATIVE mg/dL (NEGATIVE) 03/22/22 18:50 Urine Ketones NEGATIVE mg/dL (NEGATIVE) 03/22/22 18:50 Urine Occult Blood MODERATE (NEGATIVE) H 03/22/22 18:50 Urine Nitrite NEGATIVE (NEGATIVE) 03/22/22 18:50 Urine Bilirubin NEGATIVE (NEGATIVE) 03/22/22 18:50 Urine Urobilinogen 0.2 (NORMAL) E.U./dL (NORMAL) 03/22/22 18:50 Ur Leukocyte Esterase MODERATE (NEGATIVE) H 03/22/22 18:50 Urine RBC 11-25 /HPF (0-5) H 03/22/22 18:50 Urine WBC >25 /HPF (0-5) H 03/22/22 18:50 Ur Squamous Epith Cells MOD Squamous (<= Few) H 03/22/22 18:50 Urine Bacteria Moderate /HPF (None Seen) H 03/22/22 18:50 Ur Microscopic Review INDICATED 03/22/22 18:50 Urine Culture Comments NOT INDICATED 03/22/22 18:50 Nasal Adenovirus (PCR) NOT DETECTED 03/22/22 12:15 Nasal B. parapertussis DNA (PCR) NOT DETECTED 03/22/22 12:15 Nasal Coronavir 229E PCR NOT DETECTED 03/22/22 12:15 Nasal Coronavir HKU1 PCR NOT DETECTED 03/22/22 12:15 Nasal Coronavir NL63 PCR NOT DETECTED 03/22/22 12:15 Nasal Coronavir OC43 PCR NOT DETECTED 03/22/22 12:15 Nasal Enterovir/Rhinovir PCR NOT DETECTED 03/22/22 12:15 Nasal Influenza B PCR NOT DETECTED 03/22/22 12:15 Nasal Influenza A PCR NOT DETECTED 03/22/22 12:15 Nasal Parainfluen 1 PCR NOT DETECTED 03/22/22 12:15 Nasal Parainfluen 2 PCR NOT DETECTED 03/22/22 12:15 Nasal Parainfluen 3 PCR NOT DETECTED 03/22/22 12:15 Nasal Parainfluen 4 PCR NOT DETECTED 03/22/22 12:15 Nasal RSV (PCR) NOT DETECTED 03/22/22 12:15 Nasal B.pertussis DNA PCR NOT DETECTED 03/22/22 12:15 Nasal C.pneumoniae (PCR) NOT DETECTED 03/22/22 12:15 Rod Human Metapneumo PCR NOT DETECTED 03/22/22 12:15 Nasal M.pneumoniae (PCR) NOT DETECTED 03/22/22 12:15 Nasal SARS-CoV-2 (PCR) DETECTED A 03/22/22 12:15
[2022-03-24] MEDS: ALBUTEROL 6.7 GM INHALER INH PRN ×2 (10:04→21:29)
[2022-03-24] MEDS: REMDESIVIR 100MG VIAL 100 MG in SODIUM CHLORIDE 0.9% 100ML 100 ML IV SCH (10:12)
[2022-03-24] MEDS: levoFLOXacin 750 MG/150 ML 750 MG/150 ML BAG IV SCH (17:47)
[2022-03-25] MEDS: SODIUM CHLORIDE FLUSH 0.9% 10 ML SYRINGE IVP SCH ×2 (03:26→11:50)
[2022-03-25] MEDS: SODIUM CHLORIDE 0.9% 1,000 ML IV SCH (04:01)
[2022-03-25 04:57] LABS: EOSINOPHILS % (AUTO) 0.1 %; RED CELL DISTRIBUTION WIDTH 11.9 % (12.0-15.0)
[2022-03-25 05:04] LABS: BASOPHILS % (AUTO) 0.5 %; HCT - HEMATOCRIT 34.7 % (37.0-47.0); HGB - HEMOGLOBIN 12.6 g/dL (12.0-16.0); LYMPHOCYTES % (AUTO) 2.5 %; MEAN CORPUSCULAR HEMOGLOBIN 32.7 pg (27.0-31.0); MEAN CORPUSCULAR HGB CONC 36.3 g/dL (32.0-36.0); MEAN CORPUSCULAR VOLUME 90.1 fL (81.0-99.0); MONOCYTES % (AUTO) 7.4 %; NEUTROPHILS % (AUTO) 81.4 %; PLT - PLATELET COUNT 274 10^3/uL (130-450); RED BLOOD COUNT 3.85 10^6/uL (4.20-5.40); WHITE BLOOD COUNT 15.3 x10^3/uL (4.8-10.8)
[2022-03-25 05:08] LABS: ABNORMAL LYMPHS % (MANUAL) 0 %; CALCIUM 7.6 mg/dL (8.5-10.3); CREATININE 0.6 mg/dL (0.4-1.0); MAGNESIUM 2.1 mg/dL (1.7-2.8); POTASSIUM 3.4 mmol/L (3.5-5.0)
[2022-03-25 05:43] LABS: BAND NEUTROPHILS % (MANUAL) 7 %; DIFFERENTIAL COMMENT MANUAL DIFFERENTIAL; LYMPHOCYTES # (MANUAL) 0.6 10^3/uL (1.5-3.5); LYMPHOCYTES % (MANUAL) 4 %; MONOCYTES # (MANUAL) 0.8 10^3/uL (0.0-1.0); NEUTROPHILS # (MANUAL) 13.9 10^3/uL (1.5-6.6); PLATELET ESTIMATE, MANUAL NORMAL (130-450,000) (NORMAL); RBC MORPHOLOGY (MULTIPLE) NORMAL APPEARANCE (NORMAL)
[2022-03-25] MEDS: LEVOTHYROXINE 100 MCG TABLET PO SCH (06:22)
[2022-03-25] MEDS: GABAPENTIN 300 MG CAPSULE PO SCH (06:22)
[2022-03-25 08:11] VITALS: BP 130/75
--- NOTE | 2022-03-25 08:23 | Discharge Plan ---
Discharge Plan Problem Reviewed?: Yes Disposition: Home, Self Care Condition: Fair Prescriptions: levoFLOXacin [Levofloxacin] 750 mg PO DAILY #2 tablet Nitrofurantoin Macrocrystal [Macrodantin] 100 mg PO DAILY #30 cap Levothyroxine [Synthroid] 100 mcg PO QDAC #30 tab Diet: Soft Activity Restrictions: Activity as Tolerated Shower Restrictions: No Driving Restrictions: No Instruction Topics: Hyponatremia Dc Health Concerns: You were hospitalized because you had very low oxygen levels caused by COVID pneumonia and a probable bacterial pneumonia. You received steroids, Remdesivir and antibiotics. Your supplemental oxygen was able to be weaned down. You were tested to see if you need home oxygen and you do: With activity you required 2 L/min administered via nasal cannula. The equipment will be delivered to your home. You should see your primary care provider within the next month or two, to be checked if the oxygen can be stopped. You were also dehydrated and had a very low Sodium level, which was likely from your poor appetite and being on HCTZ. You needed iv saline and potassium replacement. You are being discharged home and advised to stay well hydrated, "push" fluids that have electrolytes (like broth, Gatorade or Pedialyte) for the next 2-4 days. Advance your diet as tolerated. Several more days of oral antibiotics are prescribed for you to take at home. The new prescription was sent to your [facility] pharmacy in [place]. Keep using the Robitussin-DM and your asthma inhaler to help you get through this infection. Please resume all your other pre-hospital medications EXCEPT DO NOT TAKE THE HCTZ (Hydrochlorothiazide) which is a water pill and was adding to the problems. You probably do not need this tablet going forward, since your blood pressure was controlled. Also, we found that your thyroid dose was too high, and you are being prescribed a new lower strength of 100 mcg daily. This was also sent as a new prescription order to your pharmacy. STOP TAKING the 125 mcg dose. Your PCP will need to recheck Thyroid blood tests in a month or 2, to see if this is the dose you s hould remain on. You DO NOT need to finish taking the Paxlovid. You should follow state and national guidelines regarding isolating yourself: Remain isolated until 10 days from last symptom of fever, or until you test Covid negative (on a home test). Plan of Treatment: As above. Care Goals: Improvement in symptoms and stabilization are the goals. Assessment: The patient understands and is agreeable with the plan. Additional Instructions or Follow Up instructions: If you have new or worsening symptoms, call your PCP for advice or come to the ER. No Smoking: If you smoke, Please STOP! Call for help. Follow-up with: Jennifer Gtz MD [Provider Admit Priv/Credential] -
[2022-03-25] MEDS ORDERED: CHOLECALCIFEROL 25 MCG TABLET PO SCH (09:00)
[2022-03-25] MEDS: ENOXAPARIN 40 MG/0.4 ML SYRINGE SUBQ SCH (09:02)
[2022-03-25] MEDS: amLODIPine 5 MG TABLET PO SCH (09:02)
[2022-03-25] MEDS: guaiFENesin 600 MG TABLET PO SCH (09:03)
[2022-03-25] MEDS: REMDESIVIR 100MG VIAL 100 MG in SODIUM CHLORIDE 0.9% 100ML 100 ML IV SCH (09:03)
[2022-03-25] MEDS: DEXAMETHASONE 4 MG/ML VIAL IVP SCH (09:03)
[2022-03-25] MEDS: FLUTICASONE NASAL SPRAY NAS SCH (09:04)
--- NOTE | 2022-03-25 11:47 | DISCHARGE SUMMARY ---
Discharge Summary Admit Date: 03/22/22 Discharge Date: 03/25/22 Discharging Provider: Dr Zo Omalley Primary Care Provider: Dr Jennifer Gtz Condition at Discharge: Fair Discharge Disposition: 01 Home, Self Care - HPI History of Present Illness: This is a 76-year-old white female with history of mild, exercise-induced asthma on prn inhalers, hypertension on amlodipine and HCTZ and history of hypothyroidism on Synthroid. She and her were on a trip to [place] and returned 5 days ago. The patient developed cough, fever to 103.8, malaise, no appetite, fatigue, diarrhea and shortness of breath 4 days ago, after returning by fight from [place] the previous day. She was tested and diagnosed COVID-positive 4 days ago. She started taking Paxlovid yesterday. Today she presented to the ED complaining of worsening shortness of breath, and stated that her oxygen at home was in the mid 80's%. In the ED, her room air O2 saturation was 88% and she was started on supplemental oxygen. Her chest x-ray shows a left lower lobe infiltrate and groundglass appearance changes of the lungs. Her Lactic Acid level was normal. Blood cx were obtained. She was given Azithromycin and ordered to get Ceftriaxone also, but this was discontinued because of a Keflex allergy that had caused hives. The patient is being admitted for community-acquired pneumonia and COVID-pneumonia with acute hypoxia. Her CODE status is Full Code. - HOSPITAL COURSE Hospital Course: (1) Acute respiratory failure with hypoxia She had evidence of COVID-pneumonia with groundglass changes on chest x-ray, and possibly a community-acquired lobar pneumonia, and also has a history of asthma, all of which could have added to her hypoxia. Supplemental oxygen was at 4 L/min at its highest, titrated to room air by the day before discharge. On the day of discharge, she underwent an oximetry walk test: Oxygen saturation at rest on ro om air was 91%. With ambulation on room air, her O2 sat was 87%. With ambulation on 2 L/min oxygen, her O2 sat was 92%. I am ordering home oxygen set at 2 L/min with activity, to treat her COVID pneumonia. (2) CAP (community acquired pneumonia) We started empiric Levaquin for her CAP, given her cephalosporin allergy. We also ordered Mucinex and Robitussin for pulmonary toilet. At discharge, two more days of oral Levaquin was ordered. (3) COVID-19 She had pulmonary and GI symptoms and fever at home, consistent with COVID. Isolation was ordered. Decadron and Remdesivir were given here. She needed a pured diet and was advised to advance as tolerated, given the diarrhea. (4) SHAGGY (acute kidney injury) Resolved with IV fluids. Her creatinine was 1.3 at admission, and was 0.6 at discharge. (5) Hyponatremia This was was probably caused by poor oral intake, given her GI symptoms of COVID , plus from sodium losses with her HCTZ use. She received iv saline. The admission Na of 120 was 130 at discharge. She was advised not to restart HCTZ till seen by PCP. (6) Hypokalemia Likely related to poor p.o. intake because of the GI symptoms of COVID and from being on HCTZ. Her K was replaced. (7) Asthma We ordered MDI inhalers to be used as needed, not nebulizers while she needed respiratory isolation. Decadron daily was started and supplemental oxygen, keeping sats greater than 90%. (8) HTN (hypertension) We continued with her usual amlodipine but held the HCTZ because of the Hyponatremia and because she needed IV hydration (9) Hypothyroidism TSH level came back excessively low, consistent with too high of a Synthroid dose. We decreased the Synthroid dose from 125 mcg daily to 100 mcg daily. This will need to be followed up in several months after discharge. (10) Chronic pain She requested and we restarted her home gabapentin for treating chronic pain. - ALLERGIES Allergies/Adverse Reactions: Allergies Allergy/AdvReac Type Severity Reaction Status Date / Time amoxicillin Allergy Hives Verified 03/22/22 11:48 cephalexin monohydrate * Allergy Hives Verified 03/22/22 11:48 [From Keflex] sulfamethoxazole Allergy Hives Verified 03/22/22 11:48 [From Bactrim] trimethoprim [From Bactrim] Allergy Hives Verified 03/22/22 11:48 - MEDICATIONS Home Medications: Ambulatory Orders Medication Instructions Recorded Confirmed Albuterol Sulf [Ventolin Hfa 1 - 2 puffs IH Q4HR PRN 07/20/15 03/22/22 Inhaler] Amlodipine Besylate 2.5 mg ORAL DAILY 07/20/15 03/22/22 Fluticasone [Flonase] 1 spray ROD BID 07/20/15 03/22/22 Ciclesonide [Alvesco] 1 puffs INH BID 03/22/22 03/22/22 Gabapentin [Neurontin] 300 - 600 mg PO TID 03/22/22 03/22/22 estradioL vaginal [Estrace vaginal] 1 applic VG UD PRN 03/22/22 03/22/22 Levothyroxine [Synthroid] 100 mcg PO QDAC #30 tab 03/25/22 Nitrofurantoin Macrocrystal 100 mg PO DAILY #30 cap 03/25/22 [Macrodantin] guaiFENesin/DEXTROMETHORPHAN 10 ml PO Q6HR PRN ea 03/25/22 [Robitussin Dm] levoFLOXacin [Levofloxacin] 750 mg PO DAILY #2 tablet 03/25/22 - PHYSICAL EXAM AT DISCHARGE General Appearance: positive: No acute distress, Alert, Other ((exam done remotely)) Eyes Bilateral: positive: EOMI ENT: positive: ENT inspection nml Neck: positive: Nml inspection Respiratory: positive: No respiratory distress Cardiovascular: positive: Regular rate & rhythm Abdomen: positive: No distention Skin: positive: Warm, Dry Extremities: positive: Non-tender Neurologic/Psychiatric: positive: Oriented x3 (Non-focal) - LABS Result Diagrams: 03/25/22 04:37 03/25/22 04:37 - DIAGNOSTIC IMAGING Diagnostic Imaging Results: Final report reviewed - FOLLOW UP Follow Up: See PCP in 1 to 2 weeks for hospital follow-up visit, and to be checked when home oxygen can be discontinued. - TIME SPENT Time Spent in Discharge (Minutes): 50
== END 2022-03-25 13:32 | disposition home or self-care (01) | DRG 177 ==
LOC: EDUNIT# → EDBD → ED 11:35 → MS2 13:02
PROVIDERS: ADMIT Internal Medicine; ATTEND Internal Medicine
DX: U07.1 COVID-19 (principal); J18.9 Pneumonia, unspecified organism; J12.82 Pneumonia due to coronavirus disease 2019; J45.909 Unspecified asthma, uncomplicated; J96.01 Acute respiratory failure with hypoxia; R09.02 Hypoxemia; N17.9 Acute kidney failure, unspecified; E87.1 Hypo-osmolality and hyponatremia; I10 Essential (primary) hypertension; J45.990 Exercise induced bronchospasm; E03.9 Hypothyroidism, unspecified; E87.6 Hypokalemia; G89.29 Other chronic pain; Z79.890 Hormone replacement therapy; Z79.899 Other long term (current) drug therapy
CPT/HCPCS: 36415; 71045; 80048; 80053; 81001; 83605; 83690; 83735; 84100; 84443; 85025; 85610; 85730; 87040; 87205; 87633; 94761; 96374; 99283; 99285; A9270; J1650; 81003; 87070; 87086

== ENCOUNTER 2022-04-04 13:01 | Outpatient (CLI) | payer MEDICARE ==
--- NOTE | 2022-04-04 13:24 | XRAY Report ---
PROCEDURE: Chest 2 View X-Ray INDICATIONS: DYSPNEA TECHNIQUE: 2 view(s) of the chest. COMPARISON: Chest x-ray 03/22/2022 FINDINGS: Surgical changes and devices: None. Lungs and pleura: Consolidative opacity is noted within the left lower lobe, demonstrating interval w orsening compared to prior exam. Mediastinum: Mediastinal contours are normal. Heart size is normal. Bones and chest wall: No suspicious bony abnormalities. Soft tissues appear unremarkable. IMPRESSION: Interval worsening of left lower lobe opacity suggestive of pneumonia with likely superi mposed effusion. Recommend interval follow-up to document resolution and exclude presence of underlyi ng mass lesion. Reviewed by: Sofia Vela MD on 04/04/2022 1:23 PM PDT Approved by: Sofia Vela MD on 04/04/2022 1:23 PM PDT Station ID: [id number]
== END 2022-04-04 13:02 | disposition home or self-care (01) ==
LOC: DI 13:01
PROVIDERS: ATTEND Internal Medicine
DX: R91.8 Other nonspecific abnormal finding of lung field (principal)

== ENCOUNTER 2022-04-04 13:18 | Outpatient (CLI) | payer MEDICARE ==
[2022-04-04 13:29] LABS: BASOPHILS # (AUTO) 0.1 10^3/uL (0.0-0.1); BASOPHILS % (AUTO) 0.4 %; EOSINOPHILS % (AUTO) 0.2 %; HGB - HEMOGLOBIN 11.7 g/dL (12.0-16.0); LYMPHOCYTES # (AUTO) 1.2 10^3/uL (1.5-3.5); LYMPHOCYTES % (AUTO) 9.8 %; MEAN CORPUSCULAR HEMOGLOBIN 33.8 pg (27.0-31.0); MEAN CORPUSCULAR HGB CONC 34.4 g/dL (32.0-36.0); MEAN CORPUSCULAR VOLUME 98.3 fL (81.0-99.0); MEAN PLATELET VOLUME 8.3 fL (7.9-10.8); MONOCYTES % (AUTO) 8.1 %; NEUTROPHILS # (AUTO) 9.5 10^3/uL (1.5-6.6); NEUTROPHILS % (AUTO) 80.2 %; PLT - PLATELET COUNT 463 10^3/uL (130-450); RED BLOOD COUNT 3.46 10^6/uL (4.20-5.40); RED CELL DISTRIBUTION WIDTH 12.3 % (12.0-15.0); WHITE BLOOD COUNT 11.9 x10^3/uL (4.8-10.8)
== END 2022-04-04 13:19 | disposition home or self-care (01) ==
LOC: LAB 13:18
PROVIDERS: ATTEND Internal Medicine
DX: R09.02 Hypoxemia (principal); R06.09 Other forms of dyspnea
CPT/HCPCS: 36415; 83880; 85025; 85379

== ENCOUNTER 2022-04-04 14:21 | Emergency (ER) | payer MEDICARE ==
[2022-04-04 15:07] LABS: ALBUMIN 3.4 g/dL (3.2-5.5); ALBUMIN/GLOBULIN RATIO 1.1 (1.0-2.2); BILIRUBIN,TOTAL 0.8 mg/dL (0.2-1.0); CALCIUM 8.8 mg/dL (8.5-10.3); CREATININE 0.7 mg/dL (0.4-1.0); POTASSIUM 3.9 mmol/L (3.5-5.0); TOTAL PROTEIN 6.4 g/dL (6.7-8.2)
--- NOTE | 2022-04-04 16:52 | ED Physician Documentation ---
PD HPI DYSPNEA - Stated complaint Stated Complaint: ABNORMAL LAB RESULT - Chief complaint Chief Complaint: General - History obtained from History obtained from: Patient - History of Present Illness Timing - onset: How many weeks ago (3) Timing - onset during: Light activity Timing - duration: Weeks (3) Timing - details: Gradual onset (had dyspnea and cough with Dx COVID and pneumonia and was in hospital several days, discharged with levaquin few more days and home oxygen 2 lpm. Pateint states persistent RUSS at home and not improving. Seen outpt by PMD and had CXR showing persistent infiltrate and effusion, elevated d-dimer.), Still present Inciting event(s): URI, Other (COVID and pneumonia 3 weeks ago.). No: Out of meds Associated symptoms: Cough, Wheezing. No: Fever, Hemoptysis, Chest pain / discomfort, Bilateral edema Similar symptoms before: Has not had sx before Recently seen: Clinic (today), Admitted (2 1/2 weeks ago) Review of Systems Constitutional: reports: Fatigue. denies: Fever, Chills Nose: denies: Rhinorrhea / runny nose, Congestion Throat: denies: Sore throat Respiratory: reports: Dyspnea (with light activity), Cough, Wheezing GI: denies: Nausea, Vomiting, Diarrhea Musculoskeletal: denies: Extremity swelling Neurologic: reports: Generalized weakness PD PAST MEDICAL HISTORY - Past Medical History Cardiovascular: Hypertension Respiratory: Asthma (exercise-induced), Pneumonia Neuro: None Endocrine/Autoimmune: HyPOthyroidism GI: None [employer]: None : Chronic bladder infection HEENT: None Psych: None Musculoskeletal: Other Derm: None - Past Surgical History Past Surgical History: Yes Ortho: Knee replacement - Present Medications Home Medications: Ambulatory Orders Medication Instructions Recorded Confirmed Albuterol Sulf [Ventolin Hfa 1 - 2 puffs IH Q4HR PRN 07/20/15 04/04/22 Inhaler] Amlodipine Besylate 2.5 mg ORAL DAILY 07/20/15 04/04/22 Fluticasone [Flonase] 1 spray ROD BID 07/20/15 03/22/22 Ciclesonide [Alvesco] 1 puffs INH BID 03/22/22 03/22/22 Gabapentin [Neurontin] 300 - 600 mg PO TID 03/22/22 03/22/22 estradioL vaginal [Estrace vaginal] 1 applic VG UD PRN 03/22/22 04/04/22 Levothyroxine [Synthroid] 100 mcg PO QDAC #30 tab 03/25/22 04/04/22 Nitrofurantoin Macrocrystal 100 mg PO DAILY #30 cap 03/25/22 04/04/22 [Macrodantin] Albuterol Sulf [Ventolin Hfa 2 - 3 puffs INH QID #1 each 04/04/22 Inhaler] Doxycycline Hyclate 100 mg PO BID 7 Days #14 cap 04/04/22 Ipratropium [Atrovent] 2 puffs INH QID 10 Days #12.9 gm 04/04/22 dexAMETHasone [Decadron] 4 mg PO DAILY #5 tablet 04/04/22 - Allergies Allergies/Adverse Reactions: Allergies Allergy/AdvReac Type Severity Reaction Status Date / Time amoxicillin Allergy Hives Verified 04/04/22 14:26 cephalexin monohydrate * Allergy Hives Verified 04/04/22 14:26 [From Keflex] sulfamethoxazole Allergy Hives Verified 04/04/22 14:26 [From Bactrim] trimethoprim [From Bactrim] Allergy Hives Verified 04/04/22 14:26 - Social History Does the pt smoke?: No Smoking Status: Never smoker Does the pt drink ETOH?: Yes Does the pt have substance abuse?: No - Immunizations Immunizations are current?: Yes PD ED PE NORMAL - Vitals Vital signs reviewed: Yes - General General: Alert and oriented X 3, No acute distress, Well developed/nourished - Neck Neck: Supple, no meningeal sign, No adenopathy - Cardiac Cardiac: RRR, No murmur - Respiratory Respiratory: No: Clear bilaterally (coarse sounds left base. exp wheezing noted diffusely. ) - Abdomen Abdomen: Soft, Non tender - Derm Derm: Normal color, Warm and dry - Extremities Extremities: No edema, No calf tenderness / cord - Neuro Neuro: Alert and oriented X 3, No motor deficit, Normal speech Results - Vitals Vitals: Oxygen O2 Source Room air - Labs Labs: Laboratory Tests 04/04/22 04/04/22 04/04/22 14:49 14:49 16:05 Sodium 132 L Potassium 3.9 Chloride 97 L Carbon Dioxide 26 Anion Gap 9.0 BUN 14 Creatinine 0.7 Estimated GFR (MDRD) 81 L Glucose 93 Calcium 8.8 Total Bilirubin 0.8 AST 35 ALT 20 Alkaline Phosphatase 65 Total Protein 6.4 L Albumin 3.4 Globulin 3.0 Albumin/Globulin Ratio 1.1 Lipase 64 H Procalcitonin 0.09 Nasal Adenovirus (PCR) NOT DETECTED Nasal B. parapertussis DNA (PCR) NOT DETECTED Nasal Coronavir 229E PCR NOT DETECTED Nasal Coronavir HKU1 PCR NOT DETECTED Nasal Coronavir NL63 PCR NOT DETECTED Nasal Coronavir OC43 PCR NOT DETECTED Nasal Enterovir/Rhinovir PCR NOT DETECTED Nasal Influenza B PCR NOT DETECTED Nasal Influenza A PCR NOT DETECTED Nasal Parainfluen 1 PCR NOT DETECTED Nasal Parainfluen 2 PCR NOT DETECTED Nasal Parainfluen 3 PCR NOT DETECTED Nasal Parainfluen 4 PCR NOT DETECTED Nasal RSV (PCR) NOT DETECTED Nasal B.pertussis DNA PCR NOT DETECTED Nasal C.pneumoniae (PCR) NOT DETECTED Rod Human Metapneumo PCR NOT DETECTED Nasal M.pneumoniae (PCR) NOT DETECTED Nasal SARS-CoV-2 (PCR) DETECTED A - Rads (name of study) chest CTA Radiology: Prelim report reviewed (no PE. Left lower lung infiltrate and effusion. No masses. ), See rad report PD MEDICAL DECISION MAKING - ED course Complexity details: reviewed results, considered differential (recent COVID and pneumonia, with persistent infiltrate/dyspnea with activity. elevated d-dimer outpt, so sent in for CT. ), d/w patient Departure - Departure Disposition: 01 Home, Self Care Clinical Impression: Pleural effusion, Exertional dyspnea Pneumonia Qualifiers: Pneumonia type: due to unspecified organism Laterality: left Lung location: lower lobe of lung Qualified Code(s): J18.9 - Pneumonia, unspecified organism Condition: Stable Record reviewed to determine appropriate education?: Yes Instructions: ED Effusion Pleural, ED Pneumonia Adult Follow-Up: Jennifer Gtz MD [Primary Care Provider] - Prescriptions: Ipratropium [Atrovent] 2 puffs INH QID 10 Days #12.9 gm dexAMETHasone [Decadron] 4 mg PO DAILY #5 tablet Doxycycline Hyclate 100 mg PO BID 7 Days #14 cap Albuterol Sulf [Ventolin Hfa Inhaler] 2 - 3 puffs INH QID #1 each Comments: Continue with your current usual medications. Be sure to use your albuterol rescue inhaler 2 to 3 puffs 4 times daily regularly for the next 7 to 10 days. To that add ipratropium/Atrovent 1 to 2 puffs 4 times a day as well for the next week. See if the combination helps with your breathing better than the albuterol alone (this is the combination we gave nebulizer here in the ER). I presume he has some inflammatory response in the airways still related to the recent COVID pneumonia. I would suggest Decadron steroid orally for 5 more days to help with this as well. Continue with your inhaled steroid as well. There does appear to be a persistent pneumonia on your x-ray and CT scan as well as some fluid around the lung. The size of the fluid around the lung is a little bit smaller than I would be comfortable trying to drain here in the ER. If your primary care feels the effusion is large enough for draining, it can be arranged outpatient with interventional radiology. Otherwise I think it does not have to be drained necessarily. We would go with another course of antibiotics for the apparent persistent pneumonia. Doxycycline twice daily for a week. I sent these prescriptions to [facility] in [place]. Follow-up with your primary care in the next few days. Discharge Date/Time: 04/04/22 19:25
[2022-04-04 17:11] LABS: CORONAVIRUS 229E-RESP PCR NOT DETECTED; CORONAVIRUS HKU1-RESP PCR NOT DETECTED; CORONAVIRUS NL63-RESP PCR NOT DETECTED; CORONAVIRUS OC43-RESP PCR NOT DETECTED
[2022-04-04 17:12] LABS: B. PARAPERTUSSIS- RESP PCR PAN NOT DETECTED; B. PERTUSSIS- RESP PCR PANEL NOT DETECTED; C. PNEUMONIAE- RESP PCR PANEL NOT DETECTED; HUMAN METAPNEUMOVIRUS NOT DETECTED; INFLUENZA A- RESP PCR PANEL NOT DETECTED; INFLUENZA B - RESP PCR PANEL NOT DETECTED; M. PNEUMONIAE- RESP PCR PANEL NOT DETECTED; PARAINFLUENZA VIRUS 1 NOT DETECTED; PARAINFLUENZA VIRUS 2 NOT DETECTED; PARAINFLUENZA VIRUS 3 NOT DETECTED; PARAINFLUENZA VIRUS 4 NOT DETECTED; RHINOVIRUS/ENTEROVIRUS NOT DETECTED; RSV- RESP PCR PANEL NOT DETECTED; SARS-CoV-2 -RESP PCR PANEL DETECTED
[2022-04-04] MEDS ORDERED: IPRATROPIUM/ALBUTEROL 3 ML NEB INH STA (17:26)
--- NOTE | 2022-04-04 18:36 | CT Report ---
PROCEDURE: CT angiogram chest with contrast INDICATIONS: recent pneumonia/COVID with elevated d-dimer CONTRAST: IV CONTRAST: Optiray 320 ml: 80 PO CONTRAST: *NO PO CONTRAST TECHNIQUE: After the administration of intravenous contrast, 2 mm axial images were acquired from the pulmonary apices to the posterior costophrenic angles during the arterial phase. In addition, 1 mm lung kernel and 5 mm soft tissue kernel reconstructions were performed. For radiation dose reduction, the follow ing was used: automated exposure control, adjustment of mA and/or kV according to patient size. COMPARISON: None FINDINGS: Image quality: Excellent. Pulmonary arteries: Pulmonary arteries are normal in size, and demonstrate no intraluminal illing de fects to suggest central pulmonary embolism. Lungs and pleura: Moderate left pleural effusion associated with left lower lobe consolidation and in filtrate. Additional infiltrate present in the left upper lobe. Minimal infiltrates present in the ri ght lower lobe as well. Mediastinum: Heart size is normal, without pericardial effusion. No mediastinal or hilar adenopathy . Thoracic aorta is normal in caliber and enhancement. Esophagus is normal in caliber, without hiat al hernia. Bones and chest wall: No suspicious bony lesions. Ribs and thoracic spine appear intact throughout. No axillary or supraclavicular adenopathy. The thyroid is normal in size and there are no incident al findings. Bilateral breast prosthesis with capsular calcification present Abdomen: Visualized upper abdominal solid organs appear normal in the early arterial phase of enhanc ement. Nonspecific hypodensity in the right hepatic lobe measures 1.5 cm. Identified 1.3 cm left hepatic cys t present. IMPRESSION: 1. No evidence of pulmonary emphysema, aortic dissection. 2. Bilateral pulmonary infiltrates with consolidation in the left lower lobe, consistent with pneumon ia. Associated moderate left pleural effusion 3. Nonspecific partially imaged hypodensity right hepatic lobe Reviewed by: Rolando Babb MD on 04/04/2022 5:34 PM FERNANDO Approved by: Rolando Babb MD on 04/04/2022 5:34 PM AKJUAN Station ID: [id number]
[2022-04-04] MEDS ORDERED: DEXAMETHASONE 10 MG/ML VIAL IVP STA (19:01)
[2022-04-04] MEDS ORDERED: DOXYCYCLINE 100 MG TABLET PO STA (19:01)
[2022-04-04 19:25] VITALS: BP 121/74
== END 2022-04-04 19:25 | disposition home or self-care (01) ==
LOC: ED 14:21
DX: U07.1 COVID-19 (principal); J18.9 Pneumonia, unspecified organism; J90 Pleural effusion, not elsewhere classified; I10 Essential (primary) hypertension; R09.02 Hypoxemia; R06.09 Other forms of dyspnea
CPT/HCPCS: 36415; 71046; 71275; 80053; 83690; 83880; 84145; 85025; 85379; 87633; 94640; A9270; Q9967; 96374; 99283

== ENCOUNTER 2022-04-07 11:01 | Outpatient (CLI) | payer MEDICARE ==
[~2022-04-07 11:01] MED LIST: lidocaine 1% 20 ML MDV ONE
--- NOTE | 2022-04-07 12:21 | XRAY Report ---
PROCEDURE: Post Thoracentesis 1V CXR INDICATIONS: POST THORACENTESIS TECHNIQUE: One view of the chest was acquired. COMPARISON: CT angiogram of the chest dated 04/04/2022 FINDINGS: Surgical changes and devices: None. Lungs and pleura: No left pneumothorax. Left mid and basilar density consistent with atelectasis and/ or consolidation. Mediastinum: Mediastinal contours appear normal. Heart size is normal. Bones and chest wall: No suspicious bony lesions. Overlying soft tissues appear unremarkable. IMPRESSION: No evidence of pneumothorax post left thoracentesis. Atelectasis and/or consolidation in the left clau g. Reviewed by: Mumtaz Sosa MD on 04/07/2022 12:20 PM PDT Approved by: Mumtaz Sosa MD on 04/07/2022 12:20 PM PDT Station ID: [id number]
[2022-04-07] MEDS ORDERED: lidocaine 1% 20 ML MDV SUBQ ONE (14:23)
--- NOTE | 2022-04-13 12:08 | Ultrasound Report ---
PROCEDURE: Thoracentesis Puncture INDICATIONS: PLEURAL EFFUSION TECHNIQUE: The indications, alternatives, benefits, risks, and complications of the procedure were explained to the patient. Written informed consent was obtained and placed in the chart. The chest was examined sonographically, and an appropriate site was chosen for thoracentesis. The skin was prepared and cheli ped in the usual sterile fashion, and 1% lidocaine was infiltrated from the skin down through the ple ural surface. A 19-gauge catheter-covered needle was then introduced into the pleural space, the cat heter was advanced and the needle was withdrawn, and thereafter pleural fluid was aspirated. The cat heter was then removed and a dressing was applied. COMPARISON: None. FINDINGS: Access site: Left hemithorax. Needle: One-Step centesis catheter with introducer needle. Fluid volume and description: Candy translucent Medications: 1% lidocaine for local anaesthesia. Complications: None; post-procedural chest radiograph is pending to assess for pneumothorax. IMPRESSION: Successful ultrasound-guided thoracentesis. Reviewed by: Aaron Quinn MD on 04/13/2022 12:06 PM PDT Approved by: Aaron Quinn MD on 04/13/2022 12:06 PM PDT Station ID: [id number]
== END 2022-04-07 11:02 | disposition home or self-care (01) ==
LOC: DI 11:01
PROVIDERS: ATTEND Internal Medicine
DX: J90 Pleural effusion, not elsewhere classified (principal)
CPT/HCPCS: 32555

== ENCOUNTER 2022-08-29 07:00 | Outpatient (CLI) | payer MEDICARE | END 2022-08-29 23:59 | disposition home or self-care (01) | LOC: LAB.S 07:00 | PROVIDERS: ATTEND Physician Assistant | DX: R30.0 Dysuria (principal) | CPT/HCPCS: 87077; 87086; 87181 ==

== ENCOUNTER 2023-12-25 10:10 | Outpatient (CLI) | payer MEDICARE ==
[2023-12-25 15:19] LABS: HCT - HEMATOCRIT 37.6 % (37.0-47.0); HGB - HEMOGLOBIN 12.8 g/dL (12.0-16.0); LYMPHOCYTES % (AUTO) 14.7 %; MEAN CORPUSCULAR VOLUME 96.9 fL (81.0-99.0); MEAN PLATELET VOLUME 9.6 fL (7.9-10.8); MONOCYTES % (AUTO) 10.6 %; NEUTROPHILS % (AUTO) 72.2 %; PLT - PLATELET COUNT 240 10^3/uL (130-450); RED BLOOD COUNT 3.88 10^6/uL (4.20-5.40); RED CELL DISTRIBUTION WIDTH 12.4 % (12.0-15.0); WHITE BLOOD COUNT 6.8 x10^3/uL (4.8-10.8)
[2023-12-25 15:20] LABS: BASOPHILS # (AUTO) 0.1 10^3/uL (0.0-0.1); BASOPHILS % (AUTO) 0.9 %; EOSINOPHILS # (AUTO) 0.1 10^3/uL (0.0-0.7); EOSINOPHILS % (AUTO) 1.3 %; MONOCYTES # (AUTO) 0.7 10^3/uL (0.0-1.0); NEUTROPHILS # (AUTO) 4.9 10^3/uL (1.5-6.6)
[2023-12-25 15:31] LABS: THYROID STIMULATING HORMONE 0.68 uIU/mL (0.34-5.60)
[2023-12-25 15:36] LABS: ALBUMIN 4.5 g/dL (3.2-5.5); ALBUMIN/GLOBULIN RATIO 1.7 (1.0-2.2); ALKALINE PHOSPHATASE 72 IU/L (42-121); ALT ALANINE AMINOTRANSFERASE 16 IU/L (10-60); AST ASPARTATE AMINOTRANSFERASE 31 IU/L (10-42); BILIRUBIN,TOTAL 0.8 mg/dL (0.2-1.0); BUN - BLOOD UREA NITROGEN 12 mg/dL (6-20); CALCIUM 9.8 mg/dL (8.5-10.3); CARBON DIOXIDE - CO2 27 mmol/L (21-32); CHLORIDE 98 mmol/L (101-111); CHOLESTEROL 201 mg/dL; CREATININE 0.7 mg/dL (0.6-1.3); GFR - MDRD 81 (>89); GLUCOSE 92 mg/dL (74-104); HDL CHOLESTEROL 99 mg/dL; LDL CHOLESTEROL,CALCULATED 87 mg/dL; LDL/HDL RATIO 0.9 (<4.4); POTASSIUM 3.8 mmol/L (3.5-4.5); SODIUM 133 mmol/L (135-145); TOTAL PROTEIN 7.1 g/dL (6.4-8.9); TRIGLYCERIDES 75 mg/dL (48-352); VLDL CHOLESTEROL 15 mg/dL
== END 2023-12-25 10:11 | disposition home or self-care (01) ==
LOC: LAB.S 10:10
PROVIDERS: ATTEND Internal Medicine
DX: Z00.00 Encounter for general adult medical examination without abnormal findings (principal); M25.50 Pain in unspecified joint; M54.9 Dorsalgia, unspecified; Z86.010 Personal history of colon polyps; I10 Essential (primary) hypertension; E03.9 Hypothyroidism, unspecified; R31.29 Other microscopic hematuria; M81.0 Age-related osteoporosis without current pathological fracture; Z86.16 Personal history of COVID-19; J45.909 Unspecified asthma, uncomplicated; K62.5 Hemorrhage of anus and rectum; L71.9 Rosacea, unspecified; Z79.899 Other long term (current) drug therapy
CPT/HCPCS: 36415; 80053; 80061; 82306; 83721; 84443; 85025

== ENCOUNTER 2024-02-09 13:20 | Outpatient (CLI) | payer MEDICARE ==
--- NOTE | 2024-02-09 20:28 | XRAY Report ---
PROCEDURE: Hand 3+V BL INDICATIONS: BILATERAL HAND PAIN TECHNIQUE: 3 views of the hand(s) acquired. COMPARISON: None. FINDINGS: Bones: No fractures or dislocations. No suspicious bony lesions. Focal degenerative change is seen involving the first carpometacarpal joint, with milder degenerative changes seen elsewhere. Soft tissues: No suspicious soft tissue calcifications or masses. 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 No suspicious bony erosions can be seen. Reviewed by: Evans Jackson MD on 02/09/2024 7:27 PM FERNANDO Approved by: Evans Jackson MD on 02/09/2024 7:27 PM FERNANDO Station ID: [id number]
== END 2024-02-09 13:21 | disposition home or self-care (01) ==
LOC: DI 13:20
PROVIDERS: ATTEND Internal Medicine
DX: M18.0 Bilateral primary osteoarthritis of first carpometacarpal joints (principal); M19.041 Primary osteoarthritis, right hand; M19.042 Primary osteoarthritis, left hand